=== PATIENT | female | born 1990 | race Caucasian/White ===

== ENCOUNTER 2023-09-29 08:54 | Outpatient (CLI) | payer BC, SELFPAY ==
[2023-09-29 09:56] LABS: HCG,Quantitative 10558 mIU/ml (0-5.42)
[2023-09-30 08:40] LABS: Progesterone 23.2 ng/mL (.)
== END 2023-09-29 23:59 ==
LOC: LAB 08:58
PROVIDERS: PCP Nurse Practitioner Family; Visit Provider Obstetrics & Gynecology
DX: N92.6 Irregular menstruation, unspecified (principal)
CPT/HCPCS: 36415; 84144; 84702

== ENCOUNTER 2023-10-21 11:21 | Outpatient (CLI) | payer BC, SELFPAY ==
[2023-10-21 12:13] LABS: Basophils # 0.1 K/mm3 (0-0.2); Basophils % 0.6 % (0.1-2.0); Eosinophils # 0.3 K/mm3 (0.0-0.4); Eosinophils % 2.9 % (0.1-12.0); Hematocrit 40.8 % (37.0-47.0); Hemoglobin 13.1 g/dL (12.2-16.2); Lymphocytes % 19.1 % (10-50); Mean Corpuscular HGB Conc 32.1 g/dL (31.8-35.4); Mean Corpuscular Hemoglobin 31.5 pg (27.0-31.2); Mean Corpuscular Volume 97.8 fl (81-99); Mean Platelet Volume 7.4 fl (7.4-10.4); Monocytes # 0.5 K/mm3 (0.1-1.0); Monocytes % 5.1 % (1.7-9.3); Neutrophils # 7.5 K/mm3 (1.8-7.8); Neutrophils % 72.3 % (37.0-80.0); Platelet Count 339 K/mm3 (142-424); Red Blood Count 4.17 M/mm3 (4.20-5.40); White Blood Count 10.4 K/mm3 (4.8-10.8)
[2023-10-22 09:09] LABS: Rubella Antibodies, IgG 1.36 index (Immune >0.99)
[2023-10-22 13:53] LABS: Rapid Plasma Reagin Ab Titer Non Reactive titer (NonRea<1:1)
[2023-10-27 09:20] LABS: HIV Screen 4th Generation wRfx Non Reactive
[2023-10-27 09:21] LABS: Hepatitis B Surface Antigen Negative; Hepatitis C Antibody Non Reactive
== END 2023-10-21 23:59 | disposition home or self-care (01) ==
LOC: LAB 11:22
PROVIDERS: PCP Nurse Practitioner Family; Visit Provider Obstetrics & Gynecology
DX: O26.891 Other specified pregnancy related conditions, first trimester (principal); R11.2 Nausea with vomiting, unspecified; Z3A.09 9 weeks gestation of pregnancy
CPT/HCPCS: 36415; 85025; 86593; 86703; 86762; 86850; 87086; 87340; 87380; G0432

== ENCOUNTER 2024-01-07 14:23 | Outpatient (CLI) | payer BC, SELFPAY ==
--- NOTE | 2024-01-07 14:24 | US_ITS ---
PROCEDURE: US OB /MATERNAL DETAIL CLINICAL INDICATION: 20 wk + Anatoomy Scan-Complete COMPARISON: No exams were available for comparison FINDINGS: Transabdominal sonographic images of the pelvis were obtained. From her established due date she is 19 weeks 6 days. Single viable intrauterine gestation. Breech position. Placenta: Posteriorplacenta grade 1. There is an average amount of fluid. MVP 5.28 cm. The cervix appears satisfactory. Closed and measuring 2.84 cm in length. Complete survey performed and was unremarkable on the submitted images as in PACS. No discrete anomalies identified on survey imaging by technologist. Active fetus. Three-vessel cord with satisfactory umbilical cord insertion. 4- chamber heart noted. Situs, aortic arch, the rest examination was not seen well secondary to position. Survey of brain & ventricles Unremarkable. Cerebellum, thalamus, choroid plexus, cisterna magna appear normal. Face and neck survey unremarkable. Profile, nasion, lips and nose appeared normal. Diaphragm and chest views unremarkable. Abdomen: Both kidneys noted and unremarkable. Stomach and bladder noted and satisfactory. Spine: Survey of the spine was not imaged due to position. Both arms and legs noted. Amniotic Fluid: Adequate. Measurements: Average ultrasound age 20weeks 4days. Estimated due date by ultrasound age 1105/22/2024. Estimated weight 377g BPD = 20weeks 1day HC = 20weeks 0 days AC = 21weeks 2days FL = 20weeks 5days Growth Percentile= 91 Heart Rate = 136bpm Cerebellum = 19weeks Humerus = 21weeks HC/AC is 1.08 FL/BPD is 0.72 FL/AC is 0.21 IMPRESSION: 1. Viable fetus in the breech presentation with a posterior placenta grade 1. 2. The fluid is within normal limits with an MVP of 5.28 cm. 3. Anatomical scan appears normal although the spine and cardiac scans were incomplete due to position. Suggest repeat scan in 2-4 weeks. 4. biometry is consistent with the dates. Dictated by: Carson Walker MD 01/07/2024 17:24 Carson Walker MD in [place] 01/07/2024 17:24
== END 2024-01-07 23:59 | disposition home or self-care (01) ==
LOC: RAD 14:24
PROVIDERS: PCP Nurse Practitioner Family; Visit Provider Obstetrics & Gynecology
DX: Z36.2 Encounter for other antenatal screening follow-up (principal); O99.512 Diseases of the respiratory system complicating pregnancy, second trimester; J45.909 Unspecified asthma, uncomplicated; E66.9 Obesity, unspecified; Z3A.19 19 weeks gestation of pregnancy
CPT/HCPCS: 76811

== ENCOUNTER 2024-01-21 12:44 | Outpatient (CLI) | payer BC, SELFPAY ==
--- NOTE | 2024-01-21 12:44 | US_ITS ---
PROCEDURE: US OB FOLLOW UP CLINICAL INDICATION: follow up views of spine and cardiac in 2-4 COMPARISON: US US OB /MATERNAL DETAIL from 01/07/2024 FINDINGS: Transabdominal sonographic images of the pelvis were obtained. The following parameters are obtained: From her established due date she is 21weeks 6days Viable fetus in the cephalic presentation with a posterior placenta grade 1. The posterior placenta is low lying when seen transvaginally and measures 2.3 cm from the internal cervical os. The cervix measures 4.13 cm measured transvaginally. heart rate: 139bpm bpm. Amniotic fluid: Appears normal No obvious anomalies evident. heart: Four-chamber heart: LVOT, RVOT, three-vessel view are seen and appear normal. spine: Cervical, thoracic and lower spine appear normal. Nose and lips, stomach, bladder, kidneys, three-vessel cord appear normal. IMPRESSION: 1. Viable fetus in the cephalic presentation with a posterior placenta grade 1. 2. The placenta is somewhat low lying measuring 2.3 cm from the internal cervical os. Suggest repeat scan at 28 weeks. 3. The fluid is within normal limits. 4. Anatomy of the heart and spine today appear normal. 5. The rest of the limited anatomical scan also appears normal. Dictated by: Carson Walker MD 01/22/2024 08:33 Carson Walker MD in [place] 01/22/2024 08:37
== END 2024-01-21 23:59 | disposition home or self-care (01) ==
LOC: RAD 12:44
PROVIDERS: PCP Nurse Practitioner Family; Visit Provider Obstetrics & Gynecology
DX: O28.3 Abnormal ultrasonic finding on antenatal screening of mother (principal); Z3A.21 21 weeks gestation of pregnancy; Z36.2 Encounter for other antenatal screening follow-up
CPT/HCPCS: 76816

== ENCOUNTER 2024-02-18 10:58 | Outpatient (CLI) | payer BC, SELFPAY ==
[2024-02-18 11:37] LABS: Basophils % 0.3 % (0.1-2.0); Eosinophils # 0.3 K/mm3 (0.0-0.4); Eosinophils % 3.1 % (0.1-12.0); Hematocrit 36.7 % (37.0-47.0); Lymphocytes # 1.6 K/mm3 (0.7-4.5); Lymphocytes % 18.2 % (10-50); Mean Corpuscular HGB Conc 32.5 g/dL (31.8-35.4); Mean Corpuscular Hemoglobin 31.8 pg (27.0-31.2); Mean Corpuscular Volume 97.7 fl (81-99); Mean Platelet Volume 8.4 fl (7.4-10.4); Monocytes # 0.4 K/mm3 (0.1-1.0); Monocytes % 4.7 % (1.7-9.3); Neutrophils # 6.5 K/mm3 (1.8-7.8); Neutrophils % 73.7 % (37.0-80.0); Platelet Count 249 K/mm3 (142-424); Red Blood Count 3.76 M/mm3 (4.20-5.40); Red Cell Distribution Width 13.9 % (11.5-17.5); White Blood Count 8.9 K/mm3 (4.8-10.8)
[2024-02-18 12:06] LABS: Albumin Level 3.5 g/dl (3.5-5.0); Chloride 110 mmol/L (98-107); Sodium 134 mmol/L (136-145)
[2024-02-18 12:09] LABS: Alanine Aminotransferase 15 U/L (12-78); Aspartate Amino Transferase 19 U/L (14-36); Blood Urea Nitrogen 6 mg/dl (7-17); Carbon Dioxide 20 mmol/L (22.0-30.0); Estimated Glomerular Filt Rate 185 ml/min (>60); GFR (African American) 224 ML/MIN (>60)
[2024-02-18 12:10] LABS: Albumin/Globulin Ratio 1.2 (1.1-1.8); Alkaline Phosphatase 73 U/L (38-126); Bilirubin,Total 0.4 mg/dl (0.2-1.3); Calcium 8.5 mg/dl (8.4-10.2); Globulin 2.9 g/dL (1.3-3.2); Glucose 121 mg/dl (74-100); Total Protein,Serum 6.4 g/dl (6.3-8.2)
[2024-02-18 12:22] LABS: Glucose,Fasting 115 mg/dl (74-100)
[2024-02-18 12:28] LABS: Free Thyroxine Index 2.4 ug/dL (5.93-13.13); T4 (Thyroxine) 10.5 ug/dl (5.53-11.0); Triiodothryronine (T3) Uptake 23 % (23.5-40.5)
[2024-02-18 12:58] LABS: Glucose 1 Hour 136 mg/dL (74-100)
[2024-02-18 16:08] LABS: Vitamin B12 253 pg/mL (239-931)
[2024-02-19 11:28] LABS: Rapid Plasma Reagin Ab Titer Non Reactive titer (NonRea<1:1)
== END 2024-02-18 23:59 | disposition home or self-care (01) ==
LOC: LAB 10:59
PROVIDERS: Obstetrics & Gynecology; PCP Nurse Practitioner Family; Visit Provider Specialist
DX: Z34.90 Encounter for supervision of normal pregnancy, unspecified, unspecified trimester (principal); E06.3 Autoimmune thyroiditis; R41.0 Disorientation, unspecified
CPT/HCPCS: 36415; 80050; 80053; 82607; 82746; 82951; 84436; 84443; 84479; 85025; 86593

== ENCOUNTER 2024-02-19 13:16 | Outpatient (CLI) | payer BC, SELFPAY ==
--- NOTE | 2024-02-19 13:22 | US_ITS ---
FINAL REPORT CLINICAL HISTORY: memory loss, hashimotos FINDINGS: Sonographic images of the thyroid gland were obtained. The right thyroid lobe measures 54 mm. in length. The left thyroid lobe measures 47 mm. in length. The thyroid isthmus measures 2 mm. The echogenicity is normal. No mass or nodule is identified. IMPRESSION: Unremarkable thyroid ultrasound. Reviewed, Interpreted and Dictated by Jd Samuel III, MD Transcribed by Raya Chin Authenticated and . [facility]
== END 2024-02-19 23:59 | disposition home or self-care (01) ==
LOC: RAD 13:16
PROVIDERS: PCP Nurse Practitioner Family; Visit Provider Specialist
DX: E06.3 Autoimmune thyroiditis (principal); R41.3 Other amnesia
CPT/HCPCS: 76536

== ENCOUNTER 2024-02-29 11:11 | Outpatient (CLI) | payer BC, SELFPAY ==
--- NOTE | 2024-02-29 11:12 | MR_ITS ---
FINAL REPORT CLINICAL HISTORY: confuson/memory loss FINDINGS: Multi planar MR imaging was obtained through the brain without contrast. The midline structures appear intact. There is no evidence of Chiari malformation. On T2 and flair axial images the brain parenchyma is homogeneous. On diffusion-weighted images there is no evidence of restricted diffusion. The visualized paranasal sinuses demonstrate normal signal voids. The seventh and eighth nerve root complexes are intact. IMPRESSION: Essentially unremarkable nonenhanced brain MRI. Reviewed, Interpreted and Dictated by Bob Bush MD Transcribed by Naomy Cloud Authenticated and [facility]
== END 2024-02-29 23:59 | disposition home or self-care (01) ==
LOC: RAD 11:12
PROVIDERS: PCP Nurse Practitioner Family; Visit Provider Specialist
DX: R41.3 Other amnesia (principal); R41.0 Disorientation, unspecified; R20.0 Anesthesia of skin; R20.2 Paresthesia of skin
CPT/HCPCS: 70551

== ENCOUNTER 2024-03-04 12:47 | Outpatient (CLI) | payer BC, SELFPAY ==
--- NOTE | 2024-03-04 13:26 | US_ITS ---
PROCEDURE: US OB FOLLOW UP CLINICAL INDICATION: repeat scan at 28 weeks to evaluate the placenta COMPARISON: US US OB /MATERNAL DETAIL from 01/07/2024 US US OB FOLLOW UP from 01/21/2024 FINDINGS: Transabdominal sonographic images of the pelvis were obtained. The following parameters are obtained: From her established due date she is 28weeks 0 days Viable fetus in the cephalic presentation with a posterior placenta grade 1. Transvaginally the posterior placenta is 2.2 cm from the internal cervical os. Still low lying. The cervix measures 3.16 cm transvaginally heart rate: 143bpm bpm. weight 1219 grams, 2 lb 11 oz. BPD: 29weeks 1day, 73 percentile HC: 28weeks 6days, 41 percentile AC: 28weeks 3days, 54 percentile FL: 28weeks 2days, 39 percentile HC/AC: 1.1 FL/BPD: 0.73 FL/AC: 0.22 Growth percentile: 52 Amniotic fluid index: 17.4cm, MVP 6.60 cm. No obvious anomalies evident. profile seen, stomach, bladder, kidneys, three-vessel cord, four chamber heart appear normal. IMPRESSION: 1. Viable fetus in the cephalic presentation with a posterior placenta grade 1. 2. The placenta is still low lying and measures 2.2 cm from the internal cervical os. Suggest repeat scan at 36 weeks. 3. The fluid is within normal limits with an amniotic fluid index of 17.4 cm, MVP 6.6 cm. 4. There has been good interval growth with the fetus currently 52nd percentile. 5. Limited anatomical scan appears normal. Dictated by: Carson Walker MD 03/05/2024 07:52 Carson Walker MD in [place] 03/05/2024 07:52
== END 2024-03-04 23:59 | disposition home or self-care (01) ==
LOC: RAD 12:48
PROVIDERS: PCP Nurse Practitioner Family; Visit Provider Obstetrics & Gynecology
DX: Z36.2 Encounter for other antenatal screening follow-up (principal); Z3A.28 28 weeks gestation of pregnancy
CPT/HCPCS: 76816

== ENCOUNTER 2024-03-17 00:18 | Emergency (ER) | payer BC, SELFPAY ==
--- NOTE | 2024-03-17 00:16 | ECG_ITS ---
APPROVED REPORT Exam: Resting ECG HR:73 bpm ECG Measurements Heart Rate 73 AXES WY 208 P 16 QRSd 90 QRS 24 QT 393 T 44 QTc 419 Conclusion SINUS RHYTHM NORMAL ECG UNCONFIRMED REPORT Electronically signed by : CARISSA FERNANDEZ, 03/17/2024 07:07:31
[2024-03-17 00:19] VITALS: BP 128/72; PULSE 65; RESP 19; TEMP 36.7; O2SAT 99; BMI 35.6
--- NOTE | 2024-03-17 00:28 | ED_ITS ---
Discharge Plan Disposition Patient Disposition: Home, Self-Care Prescriptions Prescriptions: No Action DHA 200 mg capsule PO escitalopram oxalate 20 mg tablet 20 mg PO DAILY albuterol sulfate 2.5 mg /3 mL (0.083 %) solution for nebulization 2.5 mg inhalation PRN Patient Comments: USE 1 VIAL IN NEBULIZER EVERY 6 HOURS NEEDED cetirizine 10 mg tablet 10 mg PO DAILY Patient Comments: TAKE 1 TABLET BY MOUTH 1 TIME EACH DAY omeprazole 40 mg capsule,delayed release(DR/EC) 40 mg PO DAILY montelukast 10 mg tablet 10 mg PO DAILY Patient Comments: TAKE 1 TABLET BY MOUTH AT BEDTIME albuterol sulfate 90 mcg/actuation HFA aerosol inhaler 2 puff inhalation PRN Patient Comments: INHALE 2 PUFFS BY MOUTH EVERY 6 HOURS NEEDED bupropion HCl 150 mg tablet extended release 24 hr 150 mg PO DAILY Qty: 30 3RF Referrals Follow up/Referrals: Provider,Referral, MD [Primary Care Provider] - See instructions Activity Restrictions/Add. Instructions Additional Instructions/Restrictions: Take Tums or other viim-lbm-[id number] reflux meds as needed. Please follow-up with your primary care provider. Please return to the emergency department if you develop any new or worsening symptoms or become concerned for your health. Clinical Impressions Clinical Impression: Chest pain Print Language Print Language: Swiss Discharge ED Provider: Brett Cantor Adult HPI General Chief complaint: Chest Pain Stated complaint: chest pain Time Seen by Provider: 03/17/24 00:20 Mode of Arrival: Family Vehicle Source of Information: Patient Limitations: No Limitations Description of Symptoms (Recalled from ER Triage Doc. by RN): 33 yo female presents with cc of chest pain; vss. states she had 2 separate episodes earlier this date, the last one lasting the longest. slightly dyspneic. slight nausea History of Present Illness HPI narrative: 33-year-old female without significant past medical history, currently 30 weeks with her third , no complications in the so far, presents for central chest pain. She reports that it happened earlier this afternoon lasting for maybe 15 minutes. It happened again starting around 7, and has been present at a low level since that time. She reports that she does have a history of eosinophilic esophagitis but usually does not have any reflux. She reports that she has had a gallbladder attack in the past and that it does not feel at all like that. Denies any significant abdominal pain. Denies history of PE, denies any recent surgery or immobilization. Related Data Home Medications ?Medication ?Instructions ?Recorded ?Confirmed albuterol sulfate 2.5 mg/3 mL 2.5 mg inhalation PRN 10/21/23 03/11/24 (0.083 %) solution for nebulization albuterol sulfate 90 mcg/actuation 2 puff inhalation PRN 10/21/23 03/11/24 aerosol inhaler cetirizine 10 mg tablet 10 mg PO DAILY 10/21/23 03/11/24 escitalopram oxalate 20 mg tablet 20 mg PO DAILY 10/21/23 03/11/24 montelukast 10 mg tablet 10 mg PO DAILY 10/21/23 03/11/24 omeprazole 40 mg capsule,delayed 40 mg PO DAILY 10/21/23 03/11/24 release docosahexaenoic acid 200 mg mg PO 02/15/24 03/11/24 capsule ( DHA) Previous Rx's ?Medication ?Instructions ?Recorded bupropion HCl 150 mg 24 hr tablet, 150 mg PO DAILY #30 tabs 02/12/24 extended release Allergies Allergy/AdvReac Type Severity Reaction Status Date / Time No Known Allergies Allergy Verified 03/11/24 11:17 [facility] Disclaimer: The information contained in this section may have been updated after the patient was seen, as this information can be updated by other users. Medical History Asthma Anxiety and depression Surgical History H/O endoscopy Hx of colonoscopy Hx of wisdom tooth extraction Family History Grandmother Cancer uterine Hypertension Thyroid disorder Other Coronary artery disease FHx: mental illness Social History Smoking Status: Unknown if ever smoked alcohol intake: never substance use type: denies use current occupational status: other details: [employer] Travel in the last 8 weeks: None ROS Obtained: Yes All systems reviewed & no additional complaints except as documented Physical Exam General General appearance: alert and in no apparent distress Head Head exam: atraumatic and normocephalic Eye Eye exam: Present normal appearance, PERRL and EOMI ENT ENT exam: Present normal oropharynx and normal external ear exam Neck Neck exam: Present normal inspection and full ROM Chest Chest inspection: Present normal inspection and symmetric chest wall rise; Absent tenderness Respiratory Respiratory exam: Present normal lung sounds bilaterally; Absent respiratory distress Cardiovascular Cardiovascular exam: Present regular rate and normal rhythm Abdominal Exam Abdominal exam: Present soft and distention (Gravid); Absent tenderness or guarding Extremities Exam Extremities exam: Present normal inspection; Absent edema or joint swelling Back Exam Back exam: Present normal inspection; Absent tenderness Neurological Exam Neurological exam: Present alert and oriented X3; Absent motor sensory deficit Psychiatric Psychiatric exam: Present normal affect and normal mood Skin Skin exam: Present warm, dry and normal color Lymphatic Lymphatic Findings: no adenopathy Medical Decision Making Medical Records Medical records reviewed: Yes I reviewed the patient's medical records. Toney Inquiry Pt receiving controlled substance: No Toney was queried for this patient: No Vital Signs: 03/17/24 00:19 Temperature 98.1 F Temperature Source Oral Pulse Rate [Right Brachial] 65 Respiratory Rate 19 Blood Pressure [Right Arm] 128/72 Blood Pressure Mean [Right Arm] 90 Blood Pressure Source [Right Arm] Automatic Cuff Blood Pressure Position [Right Arm] Sitting 02 Sat by Pulse Oximetry 99 Oxygen Delivery Method Room Air Lab Data Lab results reviewed: Yes I reviewed the patient's lab results. Lab Results 03/17/24 00:25: WBC 8.9, RBC 4.00 L, Hgb 12.4, Hct 40.1, MCV 100.3 H, MCH 31.1, MCHC 31.0 L, RDW 13.9, Plt Count 261, MPV 8.1, Neut % (Auto) 64.4, Lymph % (Auto) 23.6, Canadian % (Auto) 6.9, Eos % (Auto) 4.3, Baso % (Auto) 0.7, Neut # (Auto) 5.7, Lymph # (Auto) 2.1, Canadian # (Auto) 0.6, Eos # (Auto) 0.4, Baso # (Auto) 0.1, Sodium 135 L, Potassium 4.1, Chloride 109 H, Carbon Dioxide 23, Anion Gap 7.1, BUN 10, Creatinine 0.50 L, Estimated Creat Clear 256, Estimated GFR 143, Est GFR ( Amer) 173, Glucose 78, Calcium 9.1, Total Bilirubin 0.4, AST 23, ALT 15, Alkaline Phosphatase 82, Total Protein 7.2, Albumin 3.8, G lobulin 3.4 H, Albumin/Globulin Ratio 1.1, Lipase 103 03/17/24 00:25 03/17/24 00:25 Orders (Tests/Meds): ED MEDICATIONS Discontinued Medications Generic Name Dose Route Start Last Admin Trade Name Frejacqueline PRN Reason Stop Dose Admin Lidocaine HCl 15 ml 03/17/24 00:28 03/17/24 00:35 Lidocaine 2% Viscous Katelynn 15ml Udc PO 03/17/24 00:29 15 ml ONCE ONE Administration ORDERS Category Date Time Status CBC w/Auto Diff [Complete Blood Count Auto Diff] Stat Lab 03/17/24 00:25 Completed CMP [Comprehensive Metabolic Panel] Stat Lab 03/17/24 00:25 Completed Lipase Stat Lab 03/17/24 00:25 Completed ECG Data Tracing #1: I reviewed this ECG and interpreted as documented below: Sinus rhythm, rate of 73, no evidence of arrhythmia, no ST changes ECG initial impression date: 03/17/24 ECG initial impression time: 00:18 Medical Decision Narrative: 33-year-old female G3, P2 at 30 weeks presents for central chest pain for the last few hours.. History was obtained via interactive discussion with patient. On arrival, patient is [afebrile, hemodynamically stable, satting appropriately, alert, oriented x4, GCS 15], moving all extremities spontaneously. Full physical exam performed and significant for no significant physical exam abnormalities, specifically no abdominal tenderness, clear lungs bilaterally. Differential includes but is not limited to GERD, musculoskeletal chest pain, PE, carditis, pleurisy. Patient was given viscous lidocaine for symptomatic management and correction of underlying abnormalities. Workup initiated including CBC CMP lipase. Patient is PERC negative and does not require D-dimer. I considered the utility of a chest x-ray, but given clear lungs, lack of respiratory symptoms, active , it was felt that the risks of radiograph outweighed the benefit.. On re-evaluation, patient [remains afebrile, HD stable.] Patient reports symptomatic improvement after viscous lidocaine Laboratory workup independently interpreted by me and significant for normal renal function, normal white count, normal lipase. Given patient history, exam and workup, patient's presentation most likely represents reflux. These findings were communicated with patient. She is given instructions regarding symptomatic care and discharged in stable condition with return precautions.. Procedures Risk/Benefits of Procedure(s) Were Explained: Yes Critical Care Critical Care Time Critical Care Time: No
[2024-03-17] MEDS: LIDOCAINE 2% VISCOUS SOL 15ML UDC 15 ML PO (00:35)
[2024-03-17 00:36] LABS: Albumin Level 3.8 g/dl (3.5-5.0); Chloride 109 mmol/L (98-107); Potassium 4.1 mmoL/L (3.5-5.1); Sodium 135 mmol/L (136-145)
[2024-03-17 00:39] LABS: Alanine Aminotransferase 15 U/L (12-78); Albumin/Globulin Ratio 1.1 (1.1-1.8); Alkaline Phosphatase 82 U/L (38-126); Anion Gap 7.1 mEq/L (5-15); Aspartate Amino Transferase 23 U/L (14-36); Bilirubin,Total 0.4 mg/dl (0.2-1.3); Blood Urea Nitrogen 10 mg/dl (7-17); Calcium 9.1 mg/dl (8.4-10.2); Carbon Dioxide 23 mmol/L (22.0-30.0); Creatinine Clearance Estimated 256 mL/min (50-200); Estimated Glomerular Filt Rate 143 ml/min (>60); GFR (African American) 173 ML/MIN (>60); Globulin 3.4 g/dL (1.3-3.2); Glucose 78 mg/dl (74-100); Total Protein,Serum 7.2 g/dl (6.3-8.2)
[2024-03-17 00:46] LABS: Basophils # 0.1 K/mm3 (0-0.2); Basophils % 0.7 % (0.1-2.0); Eosinophils # 0.4 K/mm3 (0.0-0.4); Eosinophils % 4.3 % (0.1-12.0); Hematocrit 40.1 % (37.0-47.0); Hemoglobin 12.4 g/dL (12.2-16.2); Lymphocytes # 2.1 K/mm3 (0.7-4.5); Lymphocytes % 23.6 % (10-50); Mean Corpuscular Hemoglobin 31.1 pg (27.0-31.2); Mean Corpuscular Volume 100.3 fl (81-99); Mean Platelet Volume 8.1 fl (7.4-10.4); Monocytes # 0.6 K/mm3 (0.1-1.0); Monocytes % 6.9 % (1.7-9.3); Neutrophils # 5.7 K/mm3 (1.8-7.8); Neutrophils % 64.4 % (37.0-80.0); Platelet Count 261 K/mm3 (142-424); Red Cell Distribution Width 13.9 % (11.5-17.5); White Blood Count 8.9 K/mm3 (4.8-10.8)
[2024-03-17 00:48] LABS: Lipase 103 U/L (23-300)
[2024-03-17 01:07] VITALS: BP 135/80; PULSE 77; RESP 16; TEMP 36.7; O2SAT 98
== END 2024-03-17 01:08 | disposition home or self-care (01) ==
PROVIDERS: Emergency Provider Emergency Medicine
DX: O26.893 Other specified pregnancy related conditions, third trimester (principal); R07.9 Chest pain, unspecified; R06.00 Dyspnea, unspecified; R11.0 Nausea; Z3A.30 30 weeks gestation of pregnancy
CPT/HCPCS: 80053; 83690; 85025; 93005; 99285

== ENCOUNTER 2024-03-28 13:29 | Outpatient (CLI) | payer BC, SELFPAY ==
[2024-03-28 13:31] VITALS: BMI 35.9
[2024-03-28 13:57] LABS: Microscopic, Urine URINE MICROSCOPIC (MICROSCOPIC)
[2024-03-28 14:05] VITALS: BP 111/65; PULSE 76; RESP 17; TEMP 36.6; O2SAT 98; BMI 35.8
[2024-03-28 14:10] LABS: Fetal Membrane Rupture (Rapid) Negative (Negative)
[2024-03-28 14:17] LABS: Appearance,Urine CLEAR (Clear); Bilirubin,Urine Negative (Negative); Blood, Urine Negative (Negative); Color,Urine ORANGE (Yellow); Glucose,Urine (UA) Negative (Negative); Ketones,Urine TRACE (Negative); Leukocyte Esterase,Urine Negative (Negative); Nitrate,Urine Negative (Negative); Protein,Urine Negative (Negative); Specific Gravity, Urine >= 1.030 (1.005-1.030); Urobilinogen,Urine 0.2 EU/dl (0.2)
[2024-03-28 14:30] LABS: Bacteria,Urine 1+ /lpf; RBC,Urine Occasional #/hpf (0-3)
[2024-03-28 14:32] LABS: Barbiturates Screen,Urine Negative ng/ml (<200)
[2024-03-28 14:33] LABS: Amphetamine/Metha Screen,Urine Negative ng/ml (<1000); Benzodiazepines Screen,Urine Negative ng/ml (<200)
[2024-03-28 14:34] LABS: Methadone Screen,Urine Negative ng/ml (<300)
[2024-03-28 14:35] LABS: Cannabinoid Screen,Urine Negative ng/ml (<50); Cocaine Screen,Urine Negative ng/ml (<300)
[2024-03-28 14:36] LABS: Opiate Screen,Urine Negative ng/ml (<300)
[2024-03-28 14:37] LABS: Phencyclidine Screen,Urine Negative ng/ml (<25)
== END 2024-03-28 14:44 | disposition home or self-care (01) ==
LOC: OBOUT 13:29 → OB 13:31
PROVIDERS: PCP Nurse Practitioner Family; Visit Provider Obstetrics & Gynecology
DX: O42.913 Preterm premature rupture of membranes, unspecified as to length of time between rupture and onset of labor, third trimester (principal); O36.8130 Decreased fetal movements, third trimester, not applicable or unspecified; Z3A.31 31 weeks gestation of pregnancy
CPT/HCPCS: 80307; 81001; 84112; G0463

== ENCOUNTER 2024-04-25 13:36 | Outpatient (CLI) | payer BC, SELFPAY ==
[2024-04-25 13:47] VITALS: BMI 36.3
[2024-04-25 14:05] VITALS: PULSE 72; RESP 15; TEMP 36.6; O2SAT 97; BMI 36.3
== END 2024-04-25 14:30 | disposition home or self-care (01) ==
LOC: OBOUT 13:38 → OB 13:40
PROVIDERS: PCP Nurse Practitioner Family; Visit Provider Obstetrics & Gynecology
DX: O60.03 Preterm labor without delivery, third trimester (principal); Z3A.35 35 weeks gestation of pregnancy; M25.572 Pain in left ankle and joints of left foot; W01.0XXA Fall on same level from slipping, tripping and stumbling without subsequent striking against object, initial encounter
CPT/HCPCS: G0463

== ENCOUNTER 2024-04-25 14:33 | Emergency (ER) | payer BC, SELFPAY ==
--- NOTE | 2024-04-25 14:37 | XR_ITS ---
FINAL REPORT CLINICAL HISTORY: fall COMPARISON: None FINDINGS: LEFT KNEE 3 views of the left knee were obtained. There is no acute fracture or dislocation. Visualized joint spaces are normally aligned. Soft tissues are unremarkable. IMPRESSION: No acute bony abnormality. Reviewed, Interpreted and Dictated by Bob Bush MD Transcribed by Hallie Valdivia Authenticated and [facility]
[2024-04-25 14:50] VITALS: BP 121/80; PULSE 78; RESP 20; TEMP 36.4; O2SAT 97; BMI 36.5
--- NOTE | 2024-04-25 14:58 | EXP.UTC ---
Discharge Plan Disposition Patient Disposition: Home, Self-Care Condition: Good Prescriptions Prescriptions: No Action escitalopram oxalate 20 mg tablet 20 mg PO DAILY albuterol sulfate 90 mcg/actuation HFA aerosol inhaler 2 puff inhalation Q6HP PRN (Reason: Asthma) Patient Comments: INHALE 2 PUFFS BY MOUTH EVERY 6 HOURS NEEDED bupropion HCl 150 mg tablet extended release 24 hr 150 mg PO DAILY Qty: 30 3RF Referrals Follow up/Referrals: Enzo Rico DO [Staff Physician] - See instructions Reyna Garibay [Primary Care Provider] - See instructions Activity Restrictions/Add. Instructions Additional Instructions/Restrictions: Rest the extremity, apply ice for 15 minutes as tolerated three or four times per day, Wear the gary wrap for compression, Elevate the extremity as tolerated while you are resting. Take tylenol for pain. Follow up with Dr. Rioc (orthopedics). I put in a referral but you need to call his office and schedule an appointment. Follow up with your regular doctor. GO TO THE ER FOR ANY WORSENING SYMPTOMS Clinical Impressions Clinical Impression: Left knee sprain, Left knee pain, Instructions Patient Instructions: DI for Knee Sprain, How to Use a Knee Immobilizer, How to Apply an Elastic Wrap on Knee Print Language Print Language: Algerian Discharge ED Provider: Danny Park [facility] [place] HPI General Stated complaint: AO-fall 1225- Pain in L knee Mode of Arrival: Ambulatory Source of Information: Patient Limitations: No Limitations Time Seen by Provider: 04/25/24 14:58 Description of Symptoms (Recalled from Triage Doc. by RN): PATIENT STATES SHE TWISTED HER LEFT KNEE AND FELL TODAY. PATIENT C/O PAIN TO LEFT KNEE. PATIENT IS 35 WEEKS AND STATES SHE HAS BEEN TO OB TO HAVE BABY CHECKED BEFORE COMING [facility] HEENT Symptoms (Recalled from RN notes): No Resp Symptoms (Recalled from RN notes): No Skin Symptoms (Recalled from RN notes): No MS Symptoms (Recalled from RN notes): Yes Functional Status (Recalled from RN notes): WNL History of Present Illness Provider Complaint: She states that she fell earlier today and came down on her left knee. She has had left knee pain and swelling since then. She denies any other injury. She is 35 weeks . 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 She states that she was told the baby was fine. Related Data Home Medications ?Medication ?Instructions ?Recorded ?Confirmed albuterol sulfate 90 mcg/actuation 2 puff inhalation Q6HP PRN Asthma 10/21/23 04/25/24 aerosol inhaler escitalopram oxalate 20 mg tablet 20 mg PO DAILY 10/21/23 04/25/24 Previous Rx's ?Medication ?Instructions ?Recorded bupropion HCl 150 mg 24 hr tablet, 150 mg PO DAILY #30 tabs 02/12/24 extended release Allergies Allergy/AdvReac Type Severity Reaction Status Date / Time No Known Allergies Allergy Verified 04/19/24 11:15 Worker's Comp Is this a Worker's Comp case?: No [facility] Disclaimer: The information contained in this section may have been updated after the patient was seen, as this information can be updated by other users. Medical History Varicose veins during , antepartum Maternal obesity affecting , antepartum Asthma Anxiety and depression Surgical History H/O endoscopy Hx of colonoscopy Hx of wisdom tooth extraction Family History Grandmother Cancer uterine Hypertension Thyroid disorder Other Coronary artery disease FHx: mental illness Social History Smoking Status: Unknown if ever smoked alcohol intake: never substance use type: denies use current occupational status: unemployed Travel in the last 8 weeks: None ROS Obtained: Yes All systems reviewed & no additional complaints except as documented Constitutional Constitutional: Denies chills and Denies fever(s) Eyes Eyes: Denies eye discharge ENT Ears, Nose, Mouth, and Throat: Denies dizziness, Denies otalgia and Denies sore throat Cardiovascular Cardiovascular: Denies chest pain Respiratory Respiratory: Denies shortness of breath, Denies chest congestion, Denies cough, Denies stridor and Denies wheezing Gastrointestinal Gastrointestingal: Denies nausea or vomiting Musculoskeletal Musculoskeletal: Reports as per HPI Integumentary/Breasts Skin/Breast: Denies redness, Denies rash and Denies wounds Neurologic Neurologic: Denies dizziness and Denies paresthesias Allergic/Immunologic Allergic/Immunologic: Denies wheezing Physical Exam General General appearance: alert and in no apparent distress Head Head exam: atraumatic, normocephalic and normal inspection Eye Eye exam: Present normal appearance, PERRL and EOMI ENT ENT exam: Present normal exam, normal oropharynx, mucous membranes moist, TM's normal bilaterally and normal external ear exam Neck Neck exam: Present normal inspection, full ROM and trachea midline; Absent meningismus or lymphadenopathy Chest Chest inspection: Present normal inspection and symmetric chest wall rise; Absent tenderness Respiratory Respiratory exam: Present normal lung sounds bilaterally; Absent respiratory distress Cardiovascular Cardiovascular exam: Present regular rate and normal rhythm; Absent JVD Abdominal Exam Abdominal exam: Present soft and normal bowel sounds; Absent distention, tenderness or guarding Extremities Exam Extremities exam: Present normal capillary refill; Absent calf tenderness Expanded Lower Extremity Exam Left: Upper leg exam: Present normal inspection and full ROM; Absent tenderness, swelling, abrasion, laceration, ecchymosis, deformity, crepitus, dislocation or erythema Knee exam: Present tenderness, swelling, ecchymosis and knee extension intact; Absent full ROM, abrasion, laceration, deformity, crepitus, dislocation, erythema, effusion, anterior drawer sign, posterior draw sign, pain with valgus, laxity with valgus, pain with varus or laxity with varus Lower leg exam: Present normal inspection, full ROM and Achilles tendon intact; Absent tenderness, swelling, abrasion, laceration, ecchymosis, deformity, crepitus, dislocation, erythema, palpable cord or Homans' sign Neurovascular/Tendon exam: Present normal capillary refill and normal 2-point discrimination; Absent pulse deficit, motor deficit, sensory deficit, tendon deficit or extremity cold to touch Gait: observed and limited by pain Back Exam Back exam: Present normal inspection; Absent tenderness Neurological Exam Neurological exam: Present alert and oriented X3 Psychiatric Psychiatric exam: Present normal affect and normal mood Skin Skin exam: Present warm, dry, intact and normal color Lymphatic Lymphatic Findings: no adenopathy Medical Decision Making Medical Records Medical records reviewed: No I reviewed the patient's medical records. Screening: Per USPSTF and CDC recommendations, given the prevalence of disease in our region, it is our hospital?s policy to screen for HIV and viral Hepatitis for all patients aged 18 and over and those with ongoing risk factors. Toney Inquiry Pt receiving controlled substance: No Vital Signs: 04/25/24 14:50 Temperature 97.5 F L Temperature Source Oral Pulse Rate [Left Brachial] 78 Respiratory Rate 20 Blood Pressure [Left Arm] 121/80 Blood Pressure Mean [Left Arm] 93 Blood Pressure Source [Left Arm] Automatic Cuff Blood Pressure Position [Left Arm] Sitting 02 Sat by Pulse Oximetry 97 Oxygen Delivery Method Room Air Orders (Tests/Meds): ORDERS Category Date Time Status Knee XR left 3 views [XR knee LT 3V] Stat Exams 04/25/24 14:37 Taken Radiology Data #1: Image(s): Knee Image Reviewed: Yes I reviewed the patient's radiology image and Yes I have reviewed radiologist's interpretation Preliminary Findings: No Fracture Seen Accession No. : [id number] Patient Name / ID : Jody Munroe N / [id number] Exam Date : 04/25/2024 14:35:37 ( Final ) Study Comment : Sex / Age : F / 33Y Creator : RANDEE BUSH Dictator : Tennis Player : Food Services Manager : RANDEE BUSH Approver2 : Report Date : 04/25/2024 16:03:18 My Comment : FINAL REPORT CLINICAL HISTORY: fall COMPARISON: None FINDINGS: LEFT KNEE 3 views of the left knee were obtained. There is no acute fracture or dislocation. Visualized joint spaces are normally aligned. Soft tissues are unremarkable. IMPRESSION: No acute bony abnormality. Reviewed, Interpreted and Dictated by Randee Bush MD Transcribed by Hallie Valdivia Authenticated and [facility] Procedures Risk/Benefits of Procedure(s) Were Explained: Yes Orthopedic Splinting/Casting Injury #1: Side: left Lower Extremity Injury Location: knee Lower Extremity Immobilizer: knee immobilizer Post Cast/Splinting Neuro Status: intact and no change Post Cast/Splinting Vasc Status: intact and no change
[2024-04-25 15:24] VITALS: BP 121/80; PULSE 78; RESP 20; TEMP 36.4; O2SAT 97
== END 2024-04-25 15:30 | disposition home or self-care (01) ==
PROVIDERS: Emergency Provider Nurse Practitioner Family; PCP Nurse Practitioner Family
DX: S83.92XA Sprain of unspecified site of left knee, initial encounter (principal); X50.0XXA Overexertion from strenuous movement or load, initial encounter
CPT/HCPCS: 73562; 99213; G0381

== ENCOUNTER 2024-04-27 11:14 | Emergency (ER) | payer BC, SELFPAY ==
[2024-04-27 12:05] VITALS: BP 110/72; PULSE 81; RESP 20; TEMP 36.5; O2SAT 96; BMI 36.4
--- NOTE | 2024-04-27 12:07 | EXP.UTC ---
Discharge Plan Disposition Patient Disposition: Home, Self-Care Condition: Good Prescriptions Prescriptions: No Action escitalopram oxalate 20 mg tablet 20 mg PO DAILY albuterol sulfate 90 mcg/actuation HFA aerosol inhaler 2 puff inhalation Q6HP PRN (Reason: Asthma) Patient Comments: INHALE 2 PUFFS BY MOUTH EVERY 6 HOURS NEEDED bupropion HCl 150 mg tablet extended release 24 hr 150 mg PO DAILY Qty: 30 3RF Referrals Follow up/Referrals: Reyna Garibay [Primary Care Provider] - See instructions Enzo Rico DO [Staff Physician] - See instructions (Call office for appointment) Activity Restrictions/Add. Instructions Additional Instructions/Restrictions: *Use crutches and weight bearing as tolerated *RICE, Rest the extremity, Ice 15-20 minutes 3-4 times daily, Compress- wear the gary wrap as discussed as much as possible to help reduce swelling and pain, Elevate the extremity when at rest *knee immobilizer is for support and help control swelling, use it except in the shower. Be sure that is not to tight but not to loose either *Elevate when resting? Discuss with your OB what is safe to take for pain Immediately follow up with your family doctor for new or worsening of symptoms, or no noticeable improvement over the next 3-5 days Call and make appointment with Orthopedics for further evaluation and treatment Clinical Impressions Clinical Impression: Left knee pain Instructions Patient Instructions: How To Perform RICE (Rest, Ice, Compress, Elevate), How to Use Crutches, Acetaminophen (Alternative Therapy) Print Language Print Language: Kazakh Discharge ED Provider: Yumiko Carmen [facility] [place] General Stated complaint: AO- 04/25/24 Pain in L knee worse Mode of Arrival: Ambulatory Source of Information: Patient Time Seen by Provider: 04/27/24 12:07 Description of Symptoms (Recalled from Triage Doc. by RN): PREVIOUS LEFT KNEE INJURY HEENT Symptoms (Recalled from RN notes): No Resp Symptoms (Recalled from RN notes): No Skin Symptoms (Recalled from RN notes): No MS Symptoms (Recalled from RN notes): Yes Functional Status (Recalled from RN notes): WNL History of Present Illness Provider Complaint: Patient states that she twisted her left knee on Thursday and fell on it States she was seen Thursday and had an xray but today the swelling and pain was worse so she came in wanting to see if there was something else that could be done worried she may have torn something when she twisted it, she is 35wks OB States she has been putting ice on it and taking Tylenol and wearing knee immobilzer but it hurts when she puts weight on it Denies any other symptoms Related Data Home Medications ?Medication ?Instructions ?Recorded ?Confirmed albuterol sulfate 90 mcg/actuation 2 puff inhalation Q6HP PRN Asthma 10/21/23 04/25/24 aerosol inhaler escitalopram oxalate 20 mg tablet 20 mg PO DAILY 10/21/23 04/25/24 Previous Rx's ?Medication ?Instructions ?Recorded bupropion HCl 150 mg 24 hr tablet, 150 mg PO DAILY #30 tabs 02/12/24 extended release Allergies Allergy/AdvReac Type Severity Reaction Status Date / Time No Known Allergies Allergy Verified 04/19/24 11:15 Worker's Comp Is this a Worker's Comp case?: No [facility] Disclaimer: The information contained in this section may have been updated after the patient was seen, as this information can be updated by other users. Medical History Varicose veins during , antepartum Maternal obesity affecting , antepartum Asthma Anxiety and depression Surgical History H/O endoscopy Hx of colonoscopy Hx of wisdom tooth extraction Family History Grandmother Cancer uterine Hypertension Thyroid disorder Other Coronary artery disease FHx: mental illness Social History Smoking Status: Unknown if ever smoked alcohol intake: never substance use type: denies use current occupational status: unemployed Travel in the last 8 weeks: None ROS Obtained: Yes All systems reviewed & no additional complaints except as documented and Yes Systems reviewed as appropriate & no additional complaints except as documented Constitutional Constitutional: Reports system reviewed and no additional complaints, except as documented and Reports as per HPI Eyes Eyes: Reports system reviewed and no additional complaints, except as documented and Reports as per HPI ENT Ears, Nose, Mouth, and Throat: Reports system reviewed and no additional complaints, except as documented and Reports as per HPI Cardiovascular Cardiovascular: Reports system reviewed and no additional complaints, except as documented and Reports as per HPI Respiratory Respiratory: Reports system reviewed and no additional complaints, except as documented and Reports as per HPI Gastrointestinal Gastrointestingal: Reports system reviewed and no additional complaints, except as documented and as per HPI Musculoskeletal Musculoskeletal: Reports system reviewed and no additional complaints, except as documented, Reports as per HPI and Reports other (pain and swelling in left knee after falling on Thursday) Physical Exam General General appearance: alert and in no apparent distress ENT ENT exam: Present mucous membranes moist Respiratory Respiratory exam: Present normal lung sounds bilaterally; Absent respiratory distress or wheezes Cardiovascular Cardiovascular exam: Present regular rate, normal rhythm and normal heart sounds Expanded Lower Extremity Exam Left: Knee exam: Present tenderness and swelling; Absent abrasion, laceration, ecchymosis, dislocation or erythema Lower leg exam: Present normal inspection Ankle exam: Present normal inspection Foot/toe exam: Present normal inspection Gait: observed and limited by pain Neurological Exam Neurological exam: Present alert, oriented X3 and normal gait Medical Decision Making Medical Records Screening: Per USPSTF and CDC recommendations, given the prevalence of disease in our region, it is our hospital?s policy to screen for HIV and viral Hepatitis for all patients aged 18 and over and those with ongoing risk factors. Toney Inquiry Pt receiving controlled substance: No Toney was queried for this patient: No Vital Signs: 04/27/24 12:05 Temperature 97.7 F Temperature Source Oral Pulse Rate [Left Radial] 81 Respiratory Rate 20 Blood Pressure [Left Arm] 110/72 Blood Pressure Mean [Left Arm] 84 02 Sat by Pulse Oximetry 96 Medical Decision Narrative: Discussed with patient that she needed to follow up with Orthopedics for further evaluation and testing if needed, patient was asking about MRI and informed her that we was not permitted to order those from the [facility] she would need to see her PCP or Orthopedics and discuss she is 35wks OB and was told by OB that she could take Tylenol for pain, will give crutches and encouraged patient to follow up with Orthopedics for worsening knee pain Initial Xray showed no fracture and she has not falling or reinjured her knee since Thursday so therefore did not repeat xray
[2024-04-27 12:25] VITALS: BP 110/72; PULSE 81; RESP 20; TEMP 36.5
== END 2024-04-27 12:35 | disposition home or self-care (01) ==
PROVIDERS: Emergency Provider Nurse Practitioner; PCP Nurse Practitioner Family
DX: M25.562 Pain in left knee (principal)
CPT/HCPCS: 99212; G0381

== ENCOUNTER 2024-05-03 14:21 | Outpatient (RCR) | payer BC, SELFPAY | END 2024-05-03 16:00 | disposition home or self-care (01) | LOC: PT 14:21 | PROVIDERS: Visit Provider Physician Assistant | DX: M25.562 Pain in left knee (principal) | CPT/HCPCS: 97760 ==

== ENCOUNTER 2024-05-04 09:08 | Outpatient (CLI) | payer BC, SELFPAY ==
--- NOTE | 2024-05-04 09:15 | US_ITS ---
PROCEDURE: US OB FOLLOW UP CLINICAL INDICATION: repeat scan on Placenta COMPARISON: US US OB /MATERNAL DETAIL from 01/07/2024 US US OB FOLLOW UP from 01/21/2024 FINDINGS: Transabdominal sonographic images of the pelvis were obtained. The following parameters are obtained: From her established due date she is 36weeks 5days Viable fetus in the cephalic presentation with a posterior placenta grade 2. The placenta is no longer marginal and well away from the cervix. The cervix measures 2.2 cm. Transvaginally. heart rate: 126bpm bpm. BPD: 35weeks 2days, 23 percentile HC: 35weeks 5days, 7 percentile AC: 36weeks 2days, 48 percentile FL: 34weeks 5days, 8 percentile HC/AC: 0.98 FL/BPD: 0.77 FL/AC: 0.21 Growth percentile: 27 Amniotic fluid index: 10.92cm, MVP 3.89 cm. No obvious anomalies evident. Bladder, kidneys, three-vessel cord, four chamber heart appear normal. IMPRESSION: 1. Viable fetus in the cephalic presentation with a posterior placenta grade 2. The placenta is no longer marginal. 2. The cervix is seen transvaginally and measures 2.2 cm. 3. The fluid is within normal limits with an amniotic fluid index of 10.92 cm, MVP 3.89 cm. 4. Fetus is active. 5. There has been good interval growth with the fetus currently 27th percentile. Dictated by: Carson Walker MD 05/04/2024 11:26 Carson Walker MD in OV 05/04/2024 11:26
== END 2024-05-04 23:59 | disposition home or self-care (01) ==
PROVIDERS: PCP Nurse Practitioner Family; Visit Provider Obstetrics & Gynecology
DX: Z36.2 Encounter for other antenatal screening follow-up (principal); Z3A.36 36 weeks gestation of pregnancy
CPT/HCPCS: 76816

== ENCOUNTER 2024-05-10 10:55 | Outpatient (CLI) | payer BC, SELFPAY | END 2024-05-10 23:59 | disposition home or self-care (01) | LOC: LAB.DROPOF 05-11 12:37 | PROVIDERS: PCP Obstetrics & Gynecology; Visit Provider Obstetrics & Gynecology | DX: Z34.90 Encounter for supervision of normal pregnancy, unspecified, unspecified trimester (principal) | CPT/HCPCS: 86403 ==

== ENCOUNTER 2024-05-16 04:26 | Inpatient (IN) | payer BC, SELFPAY ==
[2024-05-16 04:04] VITALS: BMI 35.9
[2024-05-16 05:07] VITALS: BP 113/71; PULSE 85; RESP 18; TEMP 36.8; O2SAT 96; BMI 35.9
[2024-05-16 05:39] LABS: Basophils % 0.4 % (0.1-2.0); Eosinophils # 0.4 K/mm3 (0.0-0.4); Eosinophils % 4.1 % (0.1-12.0); Hemoglobin 12.9 g/dL (12.2-16.2); Lymphocytes % 20.4 % (10-50); Mean Corpuscular Volume 91.4 fl (81-99); Mean Platelet Volume 8.1 fl (7.4-10.4); Monocytes # 0.7 K/mm3 (0.1-1.0); Monocytes % 6.9 % (1.7-9.3); Neutrophils # 6.6 K/mm3 (1.8-7.8); Neutrophils % 68.2 % (37.0-80.0); Platelet Count 266 K/mm3 (142-424); Red Blood Count 4.16 M/mm3 (4.20-5.40); Red Cell Distribution Width 13.5 % (11.5-17.5); White Blood Count 9.7 K/mm3 (4.8-10.8)
--- NOTE | 2024-05-16 06:14 | P.HP_ITS ---
OB - H&P: HPI Antepartum History of Present Illness Chief complaint: regular, painful contractions History of present illness: Mrs Shaneka Vera is a 34 yo at 38w3d who presents to [facility] L&D with complaint of regular, painful contractions. She states she has been having contractions since yesterday. The contractions kept her up all night and became more intense around 0200 this morning. Baby is active. No leakage of fluid or vaginal bleeding. She has had good care. GBS negative. Upon arrival to L&D cervical exam was / with bulging bag. History of Present Criteria for establishing EDC:: LMP confirmed by 1st trimester US care: good care Ultrasounds: normal mid trimester US Obstetrical complications: none Medical complications: none Labs Blood type: O (+) positive Rubella: immune RPR/VDRL: nonreactive GBS status: negative HBsAG: negative [facility] Disclaimer: The information contained in this section may have been updated after the patient was seen, as this information can be updated by other users. Medical History (Updated 05/16/24 @ 06:21 by Catarina Meléndez DO) 38 weeks gestation of Active labor Varicose veins during , antepartum Maternal obesity affecting , antepartum Asthma Anxiety and depression Surgical History H/O endoscopy Hx of colonoscopy Hx of wisdom tooth extraction Family History Grandmother Cancer uterine Hypertension Thyroid disorder Other Coronary artery disease FHx: mental illness Social History Smoking Status: Unknown if ever smoked alcohol intake: never substance use type: denies use current occupational status: unemployed Travel in the last 8 weeks: None Other Medical History Have you received the Flu Vaccine for this season: No Have you received the Pneumonia Vaccine: No Review of Systems Review of Systems Review of systems:: pertinent systems reviewed and negative unless documented below *Genitourinary Comments: + regular, painful contractions Meds Home Medications and Allergies Home Medications ?Medication ?Instructions ?Recorded ?Confirmed ?Type albuterol sulfate 90 mcg/actuation 2 puff inhalation Q6HP PRN Asthma 10/21/23 05/10/24 History aerosol inhaler escitalopram oxalate 20 mg tablet 20 mg PO DAILY 10/21/23 05/10/24 History bupropion HCl 150 mg 24 hr tablet, 150 mg PO DAILY #30 tabs 02/12/24 05/10/24 Rx extended release albuterol sulfate 2.5 mg/3 mL mg continuous nebulization 05/10/24 05/10/24 History (0.083 %) solution for nebulization New Prescriptions to Start Prescriptions: Allergies Allergy/AdvReac Type Severity Reaction Status Date / Time No Known Allergies Allergy Verified 05/10/24 10:49 OB - H&P: Exam Physical Exam Vital signs: Temp Pulse Resp BP Pulse Ox O2 Del Method 98.2 F 85 18 113/71 96 Room Air 05/16/24 05:07 05/16/24 05:07 05/16/24 05:07 05/16/24 05:07 05/16/24 05:07 05/16/24 05:07 Constitutional no acute distress and cooperative Routine HEENT Exam Head: Present normocephalic and atraumatic Eye: Absent conjunctivae pink ENT: Present mucous membranes moist Routine Neck Exam Present full ROM Routine Respiratory Exam Present CTA bilaterally and normal respiratory effort Routine Cardiovascular Exam Present RRR Routine Abdominal Exam Present soft (Gravid); Absent tenderness Routine Rectal Exam Visual: Present normal rectal tone Routine Exam External: Present normal urethra appearance; Absent erythema, swelling, tenderness, lesions or lacerations Routine Extremities Exam Present full ROM; Absent edema or calf tenderness Routine Neurological Exam Present alert, moving all extremities and normal speech Routine Psychiatric Exam Present normal affect and cooperative Detailed Labor and Delivery Exam Dilation (cm): 9 Effacement (%): 90 Cervix position: anterior station: 0 Consistency: soft Membranes: artificially ruptured Amniotic fluid: clear Baseline heart rate: 125 monitor accelerations: Present monitor decelerations: None long-term variability: Average (6-10) Tachysystole: No OB - A/P Antepartum (1) Active labor: Status: Acute (2) 38 weeks gestation of : Status: Acute (3) Maternal obesity affecting , antepartum: Status: Acute (4) Asthma affecting , antepartum: Status: Acute Additional Plan Planning to breastfeed?: Yes Additional Information:: Admit to L&D for active labor GBS negative Close monitoring Anticipate
[2024-05-16 06:34] LABS: Microscopic, Urine URINE MICROSCOPIC (MICROSCOPIC)
[2024-05-16 07:02] LABS: Appearance,Urine CLEAR (Clear); Bilirubin,Urine Negative (Negative); Blood, Urine TRACE-I (Negative); Color,Urine YELLOW (Yellow); Glucose,Urine (UA) Negative (Negative); Ketones,Urine Negative (Negative); Leukocyte Esterase,Urine 1+ (Negative); Nitrate,Urine Negative (Negative); PH,Urine 5.5 (5.0-8.5); Protein,Urine Negative (Negative); Specific Gravity, Urine >= 1.030 (1.005-1.030); Urobilinogen,Urine 0.2 EU/dl (0.2)
--- NOTE | 2024-05-16 07:15 | EXP.DN ---
Delivery Note Delivery Date:: 05/16/24 Delivery Time:: 06:49 Anesthesia Type: Local Was labor medically induced?: No Gestational age (weeks): 38 delivered prior to 39 weeks?: Yes Justification for early elective delivery:: Active Labor Infant Gender: Female at 1 minute: 7 at 5 minutes: 9 LAC or MLE?: LAC Delivery Procedure:: Mom complete without epidural. Pushed for approximately 8 minutes. Head delivered spontaneously over intact perineum in ANN position. No nuchal cord. Shoulder dystocia resolved within 30 seconds with suprapubic pressure and Raz manuever. Anterior shoulder delivered with above maneuvers. Posterior shoulder and remainder of body delivered spontaneously. Baby placed on maternal abdomen, mouth and nares bulb suctioned, warmed/dried and stimulated. Delayed cord clamping was performed for 5 minutes at maternal request. Cord was clamped and cut by father of baby. Cord blood was obtained. Placenta delivered spontaneously and intact. Second degree perineal laceration repaired with 3-0 Vicryl. Hemostasis noted. Mom and baby were skin to skin and doing well after delivery. Live female baby (baby's name is undecided) APGARs 7 (1 min), 9 (5 min) EBL 200 mL Placental Delivery Description: Spontaneous
[2024-05-16 07:41] LABS: Calcium Oxalate Crystals,Urine Trace /lpf; RBC,Urine Occasional #/hpf (0-3); WBC,Urine Occasional #/hpf (0-3)
[2024-05-16 07:42] LABS: Amphetamine/Metha Screen,Urine Negative ng/ml (<1000)
[2024-05-16 07:43] LABS: Barbiturates Screen,Urine Negative ng/ml (<200); Benzodiazepines Screen,Urine Negative ng/ml (<200)
[2024-05-16 07:44] LABS: Cannabinoid Screen,Urine Negative ng/ml (<50); Cocaine Screen,Urine Negative ng/ml (<300)
[2024-05-16 07:45] LABS: Methadone Screen,Urine Negative ng/ml (<300)
[2024-05-16 07:46] LABS: Opiate Screen,Urine Negative ng/ml (<300); Phencyclidine Screen,Urine Negative ng/ml (<25)
--- NOTE | 2024-05-16 07:59 | HMH.PHAINT1 ---
Pharmacy Intervention Comments: MEDICATION RECONCILIATION COMPLETED ON PATIENT USING EXTERNAL FILL HISTORY FROM PHARMACY. -ISAURO DERAS, KRYSTIND
[2024-05-16] MEDS: WITCH HAZEL 40 PADS/BOX 1 EACH TP (08:04)
[2024-05-16] MEDS: BENZOCAINE-MENTHOL SPRAY 56GM CAN TP (08:05)
[2024-05-16] MEDS: IBUPROFEN 400 MG TABLET 800 MG PO ×2 (08:05→17:34)
[2024-05-16] MEDS: ACETAMINOPHEN 500MG TAB 1000 MG PO ×3 (08:06→23:10)
[2024-05-16] MEDS: CYCLOBENZAPRINE 10MG TABLET 5 MG PO (12:58)
[2024-05-16] MEDS: SENNA 8.6MG TABLET 8.6 MG PO (12:58)
[2024-05-16] MEDS: LANOLIN CREAM 40GM TP (12:58)
[2024-05-16] MEDS: PRENATAL MULTIVITAMIN W/IRON 1 EACH PO (17:32)
[2024-05-17] MEDS: IBUPROFEN 400 MG TABLET 800 MG PO (04:28)
[2024-05-17 07:00] LABS: Hematocrit 34.1 % (37.0-47.0); Hemoglobin 11.3 g/dL (12.2-16.2)
[2024-05-17 08:31] VITALS: BP 119/56; PULSE 85; RESP 17; TEMP 36.7; O2SAT 96
--- NOTE | 2024-05-17 10:17 | EXP.DC.SUM ---
General Admission date:: 05/16/24 Discharge date: 05/17/24 HPI HPI HPI: Chief complaint: regular, painful contractions History of present illness: Mrs Shaneka Vera is a 34 yo at 38w3d who presents to [facility] L&D with complaint of regular, painful contractions. She states she has been having contractions since yesterday. The contractions kept her up all night and became more intense around 0200 this morning. Baby is active. No leakage of fluid or vaginal bleeding. She has had good care. GBS negative. Upon arrival to L&D cervical exam was / with bulging bag. History of Present Criteria for establishing EDC:: LMP confirmed by 1st trimester US care: good care Ultrasounds: normal mid trimester US Obstetrical complications: none Medical complications: none Labs Blood type: O (+) positive Rubella: immune RPR/VDRL: nonreactive GBS status: negative HBsAG: negative Hospital Course Hospital Course Hospital Course: Delivery Date:: 05/16/24 Delivery Time:: 06:49 Anesthesia Type: Local Was labor medically induced?: No Gestational age (weeks): 38 Infant delivered prior to 39 weeks?: Yes Justification for early elective delivery:: Active Labor Gender: Female at 1 minute: 7 at 5 minutes: 9 LAC or MLE?: LAC Delivery Procedure:: Mom complete without epidural. Pushed for approximately 8 minutes. Head delivered spontaneously over intact perineum in ANN position. No nuchal cord. Shoulder dystocia resolved within 30 seconds with suprapubic pressure and Raz manuever. Anterior shoulder delivered with above maneuvers. Posterior shoulder and remainder of body delivered spontaneously. Baby placed on maternal abdomen, mouth and nares bulb suctioned, warmed/dried and stimulated. Delayed cord clamping was performed for 5 minutes at maternal request. Cord was clamped and cut by father of baby. Cord blood was obtained. Placenta delivered spontaneously and intact. Second degree perineal laceration repaired with 3-0 Vicryl. Hemostasis noted. Mom and baby were skin to skin and doing well after delivery. Live female baby (baby's name is undecided) APGARs 7 (1 min), 9 (5 min) EBL 200 mL Female infant: Francie Santana. Weight: [id number] Routine course, uncomplicated. Reports that she is still having a significant amount of bleeding and cramping especially with nursing. She is exclusively breast-feeding. Reports that her mood is stable for the time but she is concerned for developing depression. Routine discharge options reviewed in detail and the patient voiced understanding Exam Data for Last 24 hours Vital signs and Labs for Last 24 Hours: Temp Pulse Resp BP Pulse Ox O2 Del Method 98.0 F 85 17 119/56 L 96 Room Air 05/17/24 08:31 05/17/24 08:31 05/17/24 08:31 05/17/24 08:31 05/17/24 08:31 05/17/24 08:31 Laboratory Results - last 24 hr 05/17/24 06:22: Hgb 11.3 L, Hct 34.1 L I & O for Last 24 hours: Intake & Output 05/14/24 05/15/24 05/16/24 05/17/24 23:59 22:59 23:59 23:59 Weight 223 lb Results Data Completed and Pending Labs on day of discharge: Labs from last 24 hours 05/17/24 06:22 Hgb 11.3 L Hct 34.1 L DS: Diagnosis Discharge Diagnosis (1) Active labor: Status: Acute (2) 38 weeks gestation of : Status: Acute Code(s): Z3A.38 - 38 weeks gestation of (3) Maternal obesity affecting , antepartum: Status: Acute Code(s): O99.210 - Obesity complicating , unspecified trimester (4) Asthma affecting , antepartum: Status: Acute Code(s): O99.519 - Diseases of the respiratory system complicating , unspecified trimester; J45.909 - Unspecified asthma, uncomplicated Meds Home Medications and Allergies Home Medications ?Medication ?Instructions ?Recorded ?Confirmed ?Type albuterol sulfate 2.5 mg/3 mL 2.5 mg inhalation QID 05/16/24 05/16/24 History (0.083 %) solution for nebulization montelukast 10 mg tablet 10 mg PO PM 05/16/24 05/16/24 History acetaminophen 500 mg tablet 500 mg PO Q6H PRN fever or pain 05/17/24 Rx #30 tabs ibuprofen 800 mg tablet 800 mg PO Q8H PRN pain #60 tabs 05/17/24 Rx sennosides 8.6 mg tablet (Senna 8.6 mg PO BIDP PRN Constipation 05/17/24 Rx Lax) #60 tabs New Prescriptions to Start Prescriptions: acetaminophen Karen Orozco ibuprofen Karen Orozco sennosides [Senna Lax] Karen Orozco Allergies Allergy/AdvReac Type Severity Reaction Status Date / Time No Known Allergies Allergy Verified 05/10/24 10:49 Discharge Plan Disposition Patient Disposition: Home, Self-Care Discharge Order Discharge Orders: Discharge Order (Routine); Ordered 05/17/24 Ordered By: Karen Orozco Follow up Plan Follow up with: Karen Orozco DO [Staff Physician] - 2 weeks Prescriptions/Medication Reconciliation: New sennosides [Senna Lax] 8.6 mg Tablet 8.6 mg PO BIDP PRN (Reason: Constipation) Qty: 60 2RF ibuprofen 800 mg tablet 800 mg PO Q8H PRN (Reason: pain) Qty: 60 2RF acetaminophen 500 mg tablet 500 mg PO Q6H PRN (Reason: fever or pain) Qty: 30 3RF Continued albuterol sulfate 2.5 mg /3 mL (0.083 %) solution for nebulization 2.5 mg inhalation QID Patient Comments: USE DIRECTED 4 TIMES DAILY montelukast 10 mg tablet 10 mg PO PM Patient Comments: TAKE 1 TABLET BY MOUTH ONCE DAILY Problem Reconciliation Problems Reviewed?: Yes Patient Discharge Instructions DIET: regular diet Additional Instructions: Congratulations on the delivery of your sweet baby girl. It is my privilege to be your doctor. Discharge: -Take 800 mg Ibuprofen every 8 hours as needed for pain. You can also take 500-1000 mg of Tylenol in between doses, every 6-8 hours. -Colace can be taken 1-2 times per day as you need to soften your stool. Make sure to drink at least 8 cups of water per day. -Iron supplements can make you constipated. You can take iron tablets every other day if constipation is too bad. -Nothing in the vagina for 6 weeks - no intercourse, douching, tampons. No tub baths or swimming pools. -Do not lift greater than 20pounds for 2 weeks, this is the equivalent of 2 gallons of milk. -Reasons to return to L&D or call On-Call doctor - fever (greater than 100.4) - heavy vaginal bleeding (soaking through 1 pad in less than 2 hours or passing clots that are egg sized) - vaginal discharge (malodorous and/or purulent) - severe headaches, leg tenderness/edema, or any other symptoms that warrant immediate medical attention. depression/blues - Normal to feel anxious/overwhelmed for first 2 weeks - Talk to your doctor if: anxiety lasts over 2 weeks, trouble bonding with baby, withdrawing from other family members, thoughts of harming yourself or others Karen Orozco DO [facility] [phone] *Nothing in the Vagina for 6 weeks* *No strenuous activity* *No heavy lifting* *No tub baths until okay's by MD* Patient Instructions: Depression, Hemorrhage, DI for Labor and Delivery, Vaginal , DI for Pre-eclampsia, [facility] Post Discharge Instructions Print Language: Yi Providers Primary Care Provider: Reyna Garibay Admit Provider: Catarina Meléndez Attending Provider: Catarina Meléndez
[2024-05-17 12:19] LABS: Rapid Plasma Reagin Ab Titer Non Reactive titer (NonRea<1:1)
== END 2024-05-17 18:18 | disposition home or self-care (01) | DRG 807 ==
LOC: OBOUT 04:29 → OB 04:29
PROVIDERS: Admitting Provider Obstetrics & Gynecology; PCP Nurse Practitioner Family; Visit Provider Obstetrics & Gynecology
DX: O70.1 Second degree perineal laceration during delivery (principal); Z37.0 Single live birth; Z3A.38 38 weeks gestation of pregnancy; O99.214 Obesity complicating childbirth; O99.52 Diseases of the respiratory system complicating childbirth; J45.909 Unspecified asthma, uncomplicated; E66.01 Morbid (severe) obesity due to excess calories
CPT/HCPCS: 36415; 59025; 80307; 81001; 85014; 85018; 85025; 86593; 86850; 87086

== ENCOUNTER 2024-05-25 15:13 | Outpatient (CLI) | payer BC, SELFPAY ==
[2024-05-25 16:03] LABS: Basophils # 0.1 K/mm3 (0-0.2); Basophils % 0.7 % (0.1-2.0); Eosinophils # 0.5 K/mm3 (0.0-0.4); Eosinophils % 5.3 % (0.1-12.0); Hematocrit 38.4 % (37.0-47.0); Hemoglobin 12.9 g/dL (12.2-16.2); Lymphocytes # 2.5 K/mm3 (0.7-4.5); Lymphocytes % 25.1 % (10-50); Mean Corpuscular HGB Conc 33.7 g/dL (31.8-35.4); Mean Corpuscular Hemoglobin 31.1 pg (27.0-31.2); Mean Corpuscular Volume 92.5 fl (81-99); Mean Platelet Volume 7.2 fl (7.4-10.4); Monocytes # 0.7 K/mm3 (0.1-1.0); Monocytes % 6.6 % (1.7-9.3); Neutrophils # 6.3 K/mm3 (1.8-7.8); Neutrophils % 62.3 % (37.0-80.0); Platelet Count 450 K/mm3 (142-424); Red Blood Count 4.15 M/mm3 (4.20-5.40); Red Cell Distribution Width 13.2 % (11.5-17.5)
[2024-05-25 16:10] LABS: Albumin/Globulin Ratio 1.3 (1.1-1.8); Blood Urea Nitrogen 16 mg/dl (7-17); Calcium 9.2 mg/dl (8.4-10.2); Carbon Dioxide 23 mmol/L (22.0-30.0); Estimated Glomerular Filt Rate 83 ml/min (>60); GFR (African American) 100 ML/MIN (>60); Globulin 3.2 g/dL (1.3-3.2); Glucose 72 mg/dl (74-100); Potassium 4.4 mmoL/L (3.5-5.1); Total Protein,Serum 7.2 g/dl (6.3-8.2)
[2024-05-25 16:11] LABS: Alanine Aminotransferase 33 U/L (12-78); Alkaline Phosphatase 84 U/L (38-126); Anion Gap 15.4 mEq/L (5-15); Aspartate Amino Transferase 27 U/L (14-36); Bilirubin,Total 0.4 mg/dl (0.2-1.3); Chloride 106 mmol/L (98-107); Sodium 140 mmol/L (136-145)
[2024-05-25 16:15] LABS: C-Reactive Protein 3.5 mg/L (0-4)
== END 2024-05-25 23:59 | disposition home or self-care (01) ==
LOC: LAB 15:14
PROVIDERS: PCP Nurse Practitioner Family; Visit Provider Obstetrics & Gynecology
DX: R10.9 Unspecified abdominal pain (principal)
CPT/HCPCS: 36415; 80053; 85025; 86140

== ENCOUNTER 2024-06-03 07:20 | Outpatient (CLI) | payer BC, SELFPAY ==
--- NOTE | 2024-06-03 07:20 | US_ITS ---
FINAL REPORT CLINICAL HISTORY: US Gallbladder, RUQ Pain -Post Delivery COMPARISON: None FINDINGS: RUQ ULTRASOUND: Sonographic images of the right upper quadrant were obtained. The pancreas is partially obscured.The liver has an unremarkable appearance. Multiple large gallstones are present in the gallbladder. There is no evidence of biliary ductal dilatation.The common duct measures 2 mm. Limited images of the right kidney are unremarkable. IMPRESSION: Multiple large gallstones are present in the gallbladder, without evidence of biliary ductal dilatation. Reviewed, Interpreted and Dictated by Bob Bush MD Transcribed by Hallie Valdivia Authenticated and [facility]
== END 2024-06-03 23:59 | disposition home or self-care (01) ==
LOC: RAD 07:20
PROVIDERS: PCP Nurse Practitioner Family; Visit Provider Obstetrics & Gynecology
DX: R10.11 Right upper quadrant pain (principal); Z39.2 Encounter for routine postpartum follow-up
CPT/HCPCS: 76705

== ENCOUNTER 2024-07-14 19:12 | Emergency (ER) | payer BC, SELFPAY ==
[2024-07-14 19:15] VITALS: BP 134/78; PULSE 134; RESP 18; TEMP 36.9; O2SAT 94; BMI 33.2
--- NOTE | 2024-07-14 19:22 | ECG_ITS ---
APPROVED REPORT Exam: Resting ECG HR:128 bpm ECG Measurements Heart Rate 128 AXES TX 155 P 6 QRSd 93 QRS 138 QT 302 T 8 QTc [address]ressions with T wave changes in inferior leads and anterolateral leads Electronically signed by : TRAY MAJANO, 07/14/2024 20:31:22
--- NOTE | 2024-07-14 19:24 | ED_ITS ---
Discharge Plan Disposition Patient Disposition: Home, Self-Care Prescriptions Prescriptions: New doxycycline hyclate 100 mg capsule 100 mg PO BID 7 Days Qty: 14 0RF prednisone 20 mg tablet 40 mg PO DAILY 5 Days Qty: 10 0RF ondansetron 4 mg tablet,disintegrating 4 mg PO Q6H PRN (Reason: nausea and vomiting) Qty: 10 0RF No Action albuterol sulfate 2.5 mg /3 mL (0.083 %) solution for nebulization 2.5 mg inhalation QID Patient Comments: USE DIRECTED 4 TIMES DAILY montelukast 10 mg tablet 10 mg PO PM Patient Comments: TAKE 1 TABLET BY MOUTH ONCE DAILY sennosides [Senna Lax] 8.6 mg Tablet 8.6 mg PO BIDP PRN (Reason: Constipation) Qty: 60 2RF ibuprofen 800 mg tablet 800 mg PO Q8H PRN (Reason: pain) Qty: 60 2RF acetaminophen 500 mg tablet 500 mg PO Q6H PRN (Reason: fever or pain) Qty: 30 3RF Referrals Follow up/Referrals: Reyna Garibay [Primary Care Provider] - See instructions Activity Restrictions/Add. Instructions Additional Instructions/Restrictions: Call your family doctor to establish care for this visit to the emergency department and schedule follow-up within 48 hours to ensure improvement. If you have any worsening of your condition or any other concerning signs or symptoms, return to the emergency department or your primary care doctor for further evaluation. Clinical Impressions Clinical Impression: Pneumonia, Vomiting, Hypoxemia Instructions Patient Instructions: DI for Diarrhea and Traveler's Diarrhea -- Adult, DI for Diarrhea and Traveler's Diarrhea -- Child, DI for Nausea -- Adult, DI for Nausea -- Child Print Language Print Language: Romansh Discharge ED Provider: Paul Castro General Adult HPI <SUKH Anderson - Last Filed: 07/14/24 19:24> General Chief complaint: Nausea/Vomiting/Diarrhea Stated complaint: Vomiting,fever,blue lips,chest tightness Time Seen by Provider: 07/14/24 19:21 Related Data Home Medications ?Medication ?Instructions ?Recorded ?Confirmed albuterol sulfate 2.5 mg/3 mL 2.5 mg inhalation QID 05/16/24 06/15/24 (0.083 %) solution for nebulization montelukast 10 mg tablet 10 mg PO PM 05/16/24 06/15/24 Previous Rx's ?Medication ?Instructions ?Recorded acetaminophen 500 mg tablet 500 mg PO Q6H PRN fever or pain 05/17/24 #30 tabs ibuprofen 800 mg tablet 800 mg PO Q8H PRN pain #60 tabs 05/17/24 sennosides 8.6 mg tablet (Senna 8.6 mg PO BIDP PRN Constipation 05/17/24 Lax) #60 tabs doxycycline hyclate 100 mg capsule 100 mg PO BID 7 days #14 caps 07/14/24 ondansetron 4 mg disintegrating 4 mg PO Q6H PRN nausea and 07/14/24 tablet vomiting #10 tabs prednisone 20 mg tablet 40 mg (2 x 20 mg) PO DAILY 5 days 07/14/24 #10 tabs Allergies Allergy/AdvReac Type Severity Reaction Status Date / Time No Known Allergies Allergy Verified 06/15/24 13:18 <Paul Castro MD - Last Filed: 07/14/24 23:05> History of Present Illness HPI narrative: Please note that above description of symptoms, in this electronic medical record under categorization of recalled from ER triage doctor by RN are reflective of an initial nursing assessment, however, is not reflective of my full history and physical exam that was personally taken and clarified. Consequentially, this preceding description of symptoms, which may include the patient's categorized chief complaint in the EMR, do not reflect my personal clinical impression, and the ultimate description of history of present illness and patient stated complaints should be deferred to this section of the note. Unless stated otherwise or congruent with this section of the note, additional signs, symptoms, or incongruence should be interpreted as inaccurate with my clinical impression. [facility] <SUKH Anderson - Last Filed: 07/14/24 19:24> [facility] Disclaimer: The information contained in this section may have been updated after the patient was seen, as this information can be updated by other users. Medical History (Updated 07/14/24 @ 23:05 by Paul Castro MD) Varicose veins during , antepartum Asthma Anxiety and depression Surgical History H/O endoscopy Hx of colonoscopy Hx of wisdom tooth extraction Family History Grandmother Cancer uterine Hypertension Thyroid disorder Other Coronary artery disease FHx: mental illness Social History Smoking Status: Never smoker alcohol intake: never substance use type: denies use current occupational status: unemployed Travel in the last 8 weeks: None Have you lived/traveled outside [place] in past 30 days?: No Contact w/someone who lives/traveled outside US past 30 days?: No Exposure to someone with infectious disease in past 14 days?: No Do you have a fever (greater than 100.4 F or 38 C)?: Yes Have you tested positive for COVID-19: No Exposed to someone with COVID-19 in past 14 days?: No Do you have a sore throat?: No Do you have a cough?: No Do you have any weakness?: No Do you have any diarrhea?: No Are you experiencing any unusual bleeding?: No Do you have any muscle aches/pain?: No Do you have any abdominal pain?: No Are you experiencing loss of taste or smell?: No Other Medical History Have you received the Flu Vaccine for this season: No Have you received the Pneumonia Vaccine: No <SUKH Anderson - Last Filed: 07/14/24 19:24> ROS Obtained: Yes Systems reviewed as appropriate & no additional complaints except as documented Physical Exam <SUKH Anderson - Last Filed: 07/14/24 19:24> General General appearance: alert and in no apparent distress Head Head exam: atraumatic and normal inspection Eye Eye exam: Present normal appearance, PERRL and EOMI ENT ENT exam: Present normal exam, normal oropharynx and mucous membranes moist Neck Neck exam: Present normal inspection, full ROM and trachea midline; Absent lymphadenopathy Chest Chest inspection: Present normal inspection and symmetric chest wall rise Respiratory Respiratory exam: Present normal lung sounds bilaterally; Absent accessory muscle use Cardiovascular Cardiovascular exam: Present regular rate, normal rhythm, normal heart sounds, +S1 and +S2 Abdominal Exam Abdominal exam: Present soft and normal bowel sounds; Absent tenderness, guarding or rebound Extremities Exam Extremities exam: Present normal inspection and full ROM Neurological Exam Neurological exam: Present alert, oriented X3 and CN II-XII intact Psychiatric Psychiatric exam: Present normal affect and normal mood Skin Skin exam: Present warm, dry and normal color Lymphatic Lymphatic Findings: no adenopathy Medical Decision Making <SUKH Anderson - Last Filed: 07/14/24 19:24> Medical Records Screening: Per USPSTF and CDC recommendations, given the prevalence of disease in our region, it is our hospital?s policy to screen for HIV and viral Hepatitis for all patients aged 18 and over and those with ongoing risk factors. Vital Signs: 07/14/24 19:15 Temperature 98.5 F Temperature Source Temporal Artery Scan Pulse Rate [Right] 134 H Respiratory Rate 18 Blood Pressure [Right Arm] 134/78 Blood Pressure Mean [Right Arm] 96 02 Sat by Pulse Oximetry 94 L Oxygen Delivery Method Room Air Lab Data Lab Results 07/14/24 19:25: WBC 8.4, RBC 4.65, Hgb 14.0, Hct 42.9, MCV 92.3, MCH 30.1, MCHC 32.6, RDW 12.9, Plt Count 270, MPV 10.2, Neut % (Auto) 74.0, Lymph % (Auto) 16.5, Miller % (Auto) 6.6, Eos % (Auto) 2.0, Baso % (Auto) 0.5, Neut # (Auto) 6.3, Lymph # (Auto) 1.4, Miller # (Auto) 0.6, Eos # (Auto) 0.2, Baso # (Auto) 0.0, D- Dimer 0.63 H, Sodium 139, Potassium 4.7, Chloride 104, Carbon Dioxide 25, Anion Gap 14.7, BUN 19 H, Creatinine 0.70, Estimated Creat Clear 169, Estimated GFR 96, Est GFR ( Amer) 117, Glucose 92, Calcium 9.1, Magnesium 1.6, Total Bilirubin 0.4, AST 51 H, ALT 43, Alkaline Phosphatase 68, Total Protein 8.1, Albumin 4.6, Globulin 3.5 H, Albumin/Globulin Ratio 1.3, Lipase 88, HCG, Quant < 2, HIV Ag/Ab Combo Qual Negative 07/14/24 22:02: VBG pH 7.46 H, VBG pCO2 29.8 L, VBG pO2 55.6 H, VBG HCO3 20.8 L, VBG Total CO2 21.7 L, VBG O2 Saturation 91.3 H, VBG Base Excess -3.0 L, VBG Lactic Acid 3.4 H 07/14/24 19:25 07/14/24 19:25 Orders (Tests/Meds): ED MEDICATIONS Generic Name Dose Route Start Last Admin Trade Name Flaquito PRN Reason Stop Dose Admin Sodium Chloride 10 ml 07/14/24 22:22 07/14/24 22:22 Sodium Chloride 0.9% 10ml Syr (Rad Only) IV 08/13/24 22:21 10 ml NEEDED PRN Administration Maintain IV Site Discontinued Medications Generic Name Dose Route Start Last Admin Trade Name Flaquito PRN Reason Stop Dose Admin Dexamethasone Sodium Phosphate 10 mg 07/14/24 22:43 07/14/24 22:58 Dexamethasone 4mg/Ml 1ml Vial IV 07/14/24 22:44 10 mg ONCE ONE Administration Droperidol 2.5 mg 07/14/24 19:59 07/14/24 20:01 Droperidol 5mg/2ml Vial IV 07/14/24 20:00 2.5 mg ONCE ONE Administration Lactated Ringer's 1,000 mls @ 999 mls/hr 07/14/24 19:24 07/14/24 19:38 Lactated Ringer's 1000 Ml Bag IV 07/14/24 20:24 999 mls/hr .Q1H1M ONE Administration Ceftriaxone Sodium 2 gm/ 100 mls @ 200 mls/hr 07/14/24 22:03 07/14/24 22:24 Sodium Chloride IV 07/14/24 22:32 200 mls/hr ONCE ONE Administration Iopamidol 70 ml 07/14/24 22:22 07/14/24 22:23 Iopamidol-370 (76%);100ml Bottle IV 07/14/24 22:23 70 ml ONCE ONE Administration Promethazine HCl 25 mg 07/14/24 19:24 07/14/24 19:33 Promethazine Hcl 25mg/Ml 1ml Vial IV 07/14/24 19:25 25 mg ONCE ONE Administration Sodium Chloride 25 ml 07/14/24 19:24 07/14/24 19:33 Sodium Chloride 0.9% 25ml Bag IV 07/14/24 19:25 25 ml ONCE ONE Administration Sodium Chloride 50 ml 07/14/24 22:22 07/14/24 22:23 0.9 % Sodium Chloride 50 Ml Vial IV 07/14/24 22:23 50 ml ONCE ONE Administration ORDERS Category Date Time Status CT angio chest PE protocol Stat Cat Scan 07/14/24 21:59 Completed CXR --portable [XR chest portable] Stat Exams 07/14/24 20:22 Completed CBC w/Auto Diff [Complete Blood Count Auto Diff] Stat Lab 07/14/24 19:25 Completed CMP [Comprehensive Metabolic Panel] Stat Lab 07/14/24 19:25 Completed D-Dimer Stat Lab 07/14/24 19:25 Completed HCG,Quantitative Stat Lab 07/14/24 19:25 Completed HIV Combo Stat Lab 07/14/24 19:25 Completed Hep C Ab with Reflex to RNA Stat Lab 07/14/24 19: Received Lipase Stat Lab 07/14/24: Completed Magnesium Stat Lab 07/14/24 19:25 Completed VBG [Venous Blood Gas] Stat RT 07/14/24 22:02 Completed Medical Decision Narrative: In summary patient is a [age, sex] who presents to the emergency department for evaluation of [complaint]. Patient is [hemodynamically stable/unstable] upon arrival, [febrile/afebrile]. [Unremarkable physical exam, nonfocal exam versus focal remarkable exam]. Differential diagnosis includes [DDx]. Initial workup will be conducted with [hematologic labs, imaging, respiratory swab, describe workup]. Initial interventions include [crystalloid bolus, medications, p.o. challenge, etc.] initial workup reviewed by me [hematologic labs are remarkable for... Imaging remarkable for... Urinalysis remarkable for]. Upon repeat evaluation [patient had acceptable resolution of symptoms, had persistent pain for which additional interventions were conducted (describe interventions), tolerated p.o., was ambulatory, etc.]. Given this [patient is appropriate for discharge at this time and will be discharged with a prescription for... The case was discussed with hospital medicine regarding management and they will admit the patient their service for continued evaluation at this time... Etc.] Places where you can increase complexity: I informally interpreted the patient's chest x-ray or CT read and is remarkable for... Documenting what the quality assurance monitor shows with rate and rhythm Consideration of test but deferring. Ex: I considered chest x-ray on this patient however given that they have no oxygen requirement and are clear to auscultation all lung beck will be deferred. Social determinants of health: Given that patient is undomiciled increases complexity. Given that patient has polysubstance abuse compounds all aspects of care <Paul Castro MD - Last Filed: 07/14/24 23:05> Medical Records Medical records reviewed: Yes I reviewed the patient's medical records. Toney Inquiry Pt receiving controlled substance: No Toney was queried for this patient: No Vital Signs: 07/14/24 19:15 Temperature 98.5 F Temperature Source Temporal Artery Scan Pulse Rate [Right] 134 H Respiratory Rate 18 Blood Pressure [Right Arm] 134/78 Blood Pressure Mean [Right Arm] 96 02 Sat by Pulse Oximetry 94 L Oxygen Delivery Method Room Air Lab Data Lab Results 07/14/24 19:25: WBC 8.4, RBC 4.65, Hgb 14.0, Hct 42.9, MCV 92.3, MCH 30.1, MCHC 32.6, RDW 12.9, Plt Count 270, MPV 10.2, Neut % (Auto) 74.0, Lymph % (Auto) 16.5, Miller % (Auto) 6.6, Eos % (Auto) 2.0, Baso % (Auto) 0.5, Neut # (Auto) 6.3, Lymph # (Auto) 1.4, Miller # (Auto) 0.6, Eos # (Auto) 0.2, Baso # (Auto) 0.0, D- Dimer 0.63 H, Sodium 139, Potassium 4.7, Chloride 104, Carbon Dioxide 25, Anion Gap 14.7, BUN 19 H, Creatinine 0.70, Estimated Creat Clear 169, Estimated GFR 96, Est GFR ( Amer) 117, Glucose 92, Calcium 9.1, Magnesium 1.6, Total Bilirubin 0.4, AST 51 H, ALT 43, Alkaline Phosphatase 68, Total Protein 8.1, Albumin 4.6, Globulin 3.5 H, Albumin/Globulin Ratio 1.3, Lipase 88, HCG, Quant < 2, HIV Ag/Ab Combo Qual Negative 07/14/24 22:02: VBG pH 7.46 H, VBG pCO2 29.8 L, VBG pO2 55.6 H, VBG HCO3 20.8 L, VBG Total CO2 21.7 L, VBG O2 Saturation 91.3 H, VBG Base Excess -3.0 L, VBG Lactic Acid 3.4 H Orders (Tests/Meds): ED MEDICATIONS Generic Name Dose Route Start Last Admin Trade Name Flaquito PRN Reason Stop Dose Admin Sodium Chloride 10 ml 07/14/24 22:22 07/14/24 22:22 Sodium Chloride 0.9% 10ml Syr (Rad Only) IV 08/13/24 22:21 10 ml NEEDED PRN Administration Maintain IV Site Discontinued Medications Generic Name Dose Route Start Last Admin Trade Name Flaquito PRN Reason Stop Dose Admin Dexamethasone Sodium Phosphate 10 mg 07/14/24 22:43 07/14/24 22:58 Dexamethasone 4mg/Ml 1ml Vial IV 07/14/24 22:44 10 mg ONCE ONE Administration Droperidol 2.5 mg 07/14/24 19:59 07/14/24 20:01 Droperidol 5mg/2ml Vial IV 07/14/24 20:00 2.5 mg ONCE ONE Administration Lactated Ringer's 1,000 mls @ 999 mls/hr 07/14/24 19:24 07/14/24 19:38 Lactated Ringer's 1000 Ml Bag IV 07/14/24 20:24 999 mls/hr .Q1H1M ONE Administration Ceftriaxone Sodium 2 gm/ 100 mls @ 200 mls/hr 07/14/24 22:03 07/14/24 22:24 Sodium Chloride IV 07/14/24 22:32 200 mls/hr ONCE ONE Administration Iopamidol 70 ml 07/14/24 22:22 07/14/24 22:23 Iopamidol-370 (76%);100ml Bottle IV 07/14/24 22:23 70 ml ONCE ONE Administration Promethazine HCl 25 mg 07/14/24 19:24 07/14/24 19:33 Promethazine Hcl 25mg/Ml 1ml Vial IV 07/14/24 19:25 25 mg ONCE ONE Administration Sodium Chloride 25 ml 07/14/24 19:24 07/14/24 19:33 Sodium Chloride 0.9% 25ml Bag IV 07/14/24 19:25 25 ml ONCE ONE Administration Sodium Chloride 50 ml 07/14/24 22:22 07/14/24 22:23 0.9 % Sodium Chloride 50 Ml Vial IV 07/14/24 22:23 50 ml ONCE ONE Administration ORDERS Category Date Time Status CT angio chest PE protocol Stat Cat Scan 07/14/24 21:59 Completed CXR --portable [XR chest portable] Stat Exams 07/14/24 20:22 Completed CBC w/Auto Diff [Complete Blood Count Auto Diff] Stat Lab 07/14/24 19:25 Completed CMP [Comprehensive Metabolic Panel] Stat Lab 07/14/24 19:25 Completed D-Dimer Stat Lab 07/14/24 19:25 Completed HCG,Quantitative Stat Lab 07/14/24 19:25 Completed HIV Combo Stat Lab 07/14/24 19:25 Completed Hep C Ab with Reflex to RNA Stat Lab 07/14/24 19:25 Received Lipase Stat Lab 07/14/24 19:25 Completed Magnesium Stat Lab 07/14/24 19:25 Completed VBG [Venous Blood Gas] Stat RT 07/14/24 22:02 Completed Medical Decision Narrative: 34-year-old female with no relevant medical history presenting with cough, fevers, vomiting, body aches and general malaise. Patient states that she started having a cough a couple days prior to this. Everyone around her is sick with some kind of viral illness and she thinks she may have picked it up. She does have a history of reactive airway disease and states that she has been coughing producing clear sputum. Also states that she has been vomiting today is nonbloody, nonbilious. Still passing gas, denies urinary symptoms or diarrhea. History was obtained via conversation with patient. On arrival, patient hemodynamically stable, alert, oriented x4, appropriate, GCS 15, moving all extremities spontaneously, pupils equal and reactive to light. Full physical exam performed and significant for on comfortable appearing patient who is in mild distress secondary to vomiting and retching. She is tachycardic, mildly hypoxemic 90 to 92% on room air with perioral cyanosis. Lungs are clear without wheezes, rales. Patient has no prolonged expiratory phase or increased work of breathing. Abdomen soft, nontender, nondistended. No flank tenderness. Patient tachycardic with no murmurs gallops or rubs, no lower extremity edema. Differential includes pneumonia, bronchitis, PE, pneumothorax, sepsis, arrhythmia, gastritis, enteritis, pancreatitis, , among others. Patient placed on continuous cardiac monitoring and continuous pulse ox with initial blood pressure 134/78, heart rate 134, saturation 94% on room air. Independent interpretation of EKG shows sinus tachycardia 128 bpm with [place] 155, QRS 93, QTc 378. Patient has ST depressions in anterior lateral leads as well as inferior leads.. Patient was given Phenergan and fluids for symptomatic management and correction of underlying abnormalities. Patient continues vomiting, so was given 2.5 mg droperidol with complete resolution of vomiting. Workup independently interpreted and significant for nonactionable CBC or chemistry. Lipase negative, hCG negative. Her dimer elevated at 0.63 and given EKG findings, hypoxemia, cough and normal physical exam, CT PE ordered. Chest x-ray was independently interpreted prior to CT PE and it appears patient is developing a right lower lobe pneumonia. She was given 2 g ceftriaxone for this. On independent interpretation of imaging, patient appears to have bronchial inflammation and bilateral groundglass opacities consistent with atypical pneumonia versus viral pneumonia. See radiology read for full review of final results. On reevaluation, patient resting comfortably states that she feels much better, speaking full sentences and no longer retching. Remarkable turnaround from how she looked when she came in. Saturating appropriately. Given patient presentation, workup, history, this most likely represents multifocal pneumonia versus atypical pneumonia with hypoxemia and and acute vomiting syndrome. Prolonged conversation had with patient and family in the room. Admission offered, patient opted for home-going. I feel this is appropriate, but want to give her doxycycline, steroid for home-going. Also going to send home with Zofran for nausea. Because patient at baseline without signs or symptoms of clinical decompensation, deemed appropriate for discharge. Results were relayed to patient who voiced understanding and were agreeable to outpatient management and follow up. I discussed my clinical impression with patient and answered all questions. At this time, the evidence for any other entities in the differential is insufficient to warrant any further testing or ED observation. This was explained as well. Advisory was given that persistent or worsening symptoms require further evaluation. I confirmed the understanding of this discussion. Lead Radiologic Technologist disclaimer Much of this encounter note is an electronic buffing machine operator spoken language to printed text. Electronic buffing machine operator of the spoken language may permit errors. Although I have reviewed the note, some errors may still exist. Critical Care <Paul Castro MD - Last Filed: 07/14/24 23:05> Critical Care Time Critical Care Time: No
[2024-07-14 19:33] LABS: Eosinophils # 0.2 K/mm3 (0.0-0.4)
[2024-07-14] MEDS: SODIUM CHLORIDE 0.9% 25ML BAG 25 ML IV (19:33)
[2024-07-14] MEDS: PROMETHAZINE HCL 25MG/ML 1ML VIAL 25 MG IV (19:33)
[2024-07-14] MEDS: LACTATED RINGERS 1000ML 1,000 ML 999 ML IV (19:38)
[2024-07-14 19:40] LABS: Albumin Level 4.6 g/dl (3.5-5.0); Chloride 104 mmol/L (98-107)
[2024-07-14 19:41] LABS: Potassium 4.7 mmoL/L (3.5-5.1); Sodium 139 mmol/L (136-145)
[2024-07-14 19:43] LABS: Alanine Aminotransferase 43 U/L (12-78); Albumin/Globulin Ratio 1.3 (1.1-1.8); Alkaline Phosphatase 68 U/L (38-126); Anion Gap 14.7 mEq/L (5-15); Aspartate Amino Transferase 51 U/L (14-36); Bilirubin,Total 0.4 mg/dl (0.2-1.3); Blood Urea Nitrogen 19 mg/dl (7-17); Carbon Dioxide 25 mmol/L (22.0-30.0); Creatinine Clearance Estimated 169 mL/min (50-200); Estimated Glomerular Filt Rate 96 ml/min (>60); GFR (African American) 117 ML/MIN (>60); Globulin 3.5 g/dL (1.3-3.2); Total Protein,Serum 8.1 g/dl (6.3-8.2)
[2024-07-14 19:44] LABS: Calcium 9.1 mg/dl (8.4-10.2); Glucose 92 mg/dl (74-100); Lipase 88 U/L (23-300); Magnesium 1.6 mg/dl (1.6-2.3)
[2024-07-14] MEDS: droPERidol 5MG/2ML VIAL 2.5 MG IV (20:01)
[2024-07-14 20:07] LABS: HCG,Quantitative < 2 mIU/ml (0-5.42)
--- NOTE | 2024-07-14 20:08 | PC.NURSE ---
As per the MAR administered 25mg of promethazine diluted in 25mL of NS. Also, administered 1L of LR and 2.5mg of droperidol. EKG documented prior to administration.
[2024-07-14 20:17] LABS: Basophils % 0.5 % (0.1-2.0); Hematocrit 42.9 % (37.0-47.0); Lymphocytes # 1.4 K/mm3 (0.7-4.5); Lymphocytes % 16.5 % (10-50); Mean Corpuscular HGB Conc 32.6 g/dL (31.8-35.4); Mean Corpuscular Hemoglobin 30.1 pg (27.0-31.2); Mean Corpuscular Volume 92.3 fl (81-99); Mean Platelet Volume 10.2 fl (7.4-10.4); Monocytes # 0.6 K/mm3 (0.1-1.0); Monocytes % 6.6 % (1.7-9.3); Neutrophils # 6.3 K/mm3 (1.8-7.8); Platelet Count 270 K/mm3 (142-424); Red Blood Count 4.65 M/mm3 (4.20-5.40); Red Cell Distribution Width 12.9 % (11.5-17.5); White Blood Count 8.4 K/mm3 (4.8-10.8)
--- NOTE | 2024-07-14 20:22 | XR_ITS ---
PROCEDURE INFORMATION: Exam: XR Chest Exam date and time: 07/14/2024 8:49 PM Age: 34 years old Clinical indication: Shortness of breath; Additional info: SOA couygh hypox TECHNIQUE: Imaging protocol: Radiologic exam of the chest. Views: 1 view. COMPARISON: No relevant prior studies available. FINDINGS: Lungs: Subtle left basilar subsegmental opacity. Pleural spaces: Unremarkable. No pleural effusion. No pneumothorax. Heart/Mediastinum: Unremarkable. No cardiomegaly. Bones/joints: Unremarkable. IMPRESSION: Left basilar subsegmental atelectasis/infiltration.
[2024-07-14 20:40] LABS: D-Dimer 0.63 ug/mL (0.0-0.5)
[2024-07-14 21:40] LABS: HIV Combo NEGATIVE (Negative)
--- NOTE | 2024-07-14 21:59 | CT_ITS ---
PROCEDURE INFORMATION: Exam: CTA Chest With Contrast Exam date and time: 07/14/2024 10:15 PM Age: 34 years old Clinical indication: Shortness of breath; Additional info: SOA, hypoxemia, dimer and tachy TECHNIQUE: Imaging protocol: Computed tomographic angiography of the chest with contrast. Exam focused on the arteries. 3D rendering (Not supervised by radiologist): MIP and/or 3D reconstructed images were created by the technologist. Radiation optimization: All CT scans at this facility use at least one of these dose optimization techniques: automated exposure control; mA and/or kV adjustment per patient size (includes targeted exams where dose is matched to clinical indication); or iterative reconstruction. Contrast material: ISOVUE; Contrast volume: 70 ml; Contrast route: INTRAVENOUS (IV); COMPARISON: CR XR CHEST PORTABLE 07/14/2024 8:49 PM FINDINGS: Pulmonary arteries: Normal. No pulmonary emboli. Aorta: Unremarkable. No aortic aneurysm. No aortic dissection. Lungs: Bilateral infrahilar/lower lung zone and peripheral opacities. Pleural spaces: Unremarkable. No pneumothorax. No pleural effusion. Heart: Unremarkable. No cardiomegaly. No pericardial effusion. Lymph nodes: Unremarkable. No enlarged lymph nodes. Bones/joints: Unremarkable. No acute fracture. Soft tissues: Unremarkable. IMPRESSION: 1. No central or segmental pulmonary arterial embolism identified. 2. Bilateral infiltration including from COVID pneumonia.
--- NOTE | 2024-07-14 22:09 | PC.NURSE ---
radiology taking pt at this time
[2024-07-14 22:10] LABS: VBG HCO3 20.8 mmol/L (23-30); VBG Oxygen Saturation 91.3 % (50-70); VBG PCO2 29.8 mmol/L (35-51); VBG PH 7.46 mmol/L (7.31-7.41); VBG PO2 55.6 mmol/L (28-40); VBG Total CO2 21.7 mmol/L (23-27)
[2024-07-14 22:12] LABS: Lactate Venous 3.4 mmol/L (0.4-2.0)
[2024-07-14] MEDS: SODIUM CHLORIDE 0.9% 10ML SYR (RAD ONLY) 10 ML IV (22:22)
[2024-07-14] MEDS: IOPAMIDOL-370 (76%);100ML BOTTLE 70 ML IV (22:23)
[2024-07-14] MEDS: 0.9 % SODIUM CHLORIDE 50 ML VIAL IV (22:23)
[2024-07-14] MEDS: CEFTRIAXONE SODIUM 2 GM in 0.9 % SODIUM CHLORIDE 100 ML IV (22:24)
[2024-07-14] MEDS: DEXAMETHASONE 4MG/ML 1ML VIAL 10 MG IV (22:58)
[2024-07-14 23:10] VITALS: BP 106/66; PULSE 108; RESP 18; TEMP 36.7; O2SAT 94
[2024-07-16 06:10] LABS: HCV Ab Non Reactive (Non Reactive)
== END 2024-07-14 23:21 | disposition home or self-care (01) ==
PROVIDERS: Physician Assistant; Emergency Provider Emergency Medicine; PCP Nurse Practitioner Family
DX: R09.02 Hypoxemia (principal); J18.9 Pneumonia, unspecified organism; R11.2 Nausea with vomiting, unspecified; R50.9 Fever, unspecified; R07.89 Other chest pain
CPT/HCPCS: 71045; 71275; 80053; 82803; 83690; 83735; 84702; 85025; 85378; 86803; 87389; 93005; 96361; 96374; 96375; 99285; J0696; J1100; J1790; J2550; J7120; Q9967

== ENCOUNTER 2025-06-28 12:48 | Outpatient (CLI) | payer BC, SELFPAY ==
--- OUTSIDE RECORDS SUMMARY | 2025-05-24 14:20 | XMS_ITS | Encounter Summary ---
Author Organization [facility] Address [address] [place] [address] Care Team Providers Care Produce Team Lead Name Role Phone Reyna Garibay APRN Primary Care Provider [phone] Reason for Visit * Reason Comments Sinusitis Encounter Details Date Type Department Care Team (Late st Contact Info) Description 05/24/2025 2:20 PM EST Office Visit [facility] [address] [place] [address] Reyna Garibay APRN [address] [place] [address] Non-recurrent acute serous otitis media of right ear (Primary Dx); Pharyngitis, unspecified etiology Social History Tobacco Use Types Packs/Day Years Used Date Smoking Tobacco: Never Passive Smoke Exposure: Never Smokeless Tobacco: Never Alcohol Use Standard Drinks/Week Comments Never 0 (1 standard drink = 0.6 oz pur e alcohol) PHQ-2 Answer Date Recorded Patient Health Questionnaire-2 Score 2 05/24/2025 PHQ-9 Answer Date Recorded Patient Health Questionnaire-9 Score 9 05/24/2025 Humiliation, Afraid, Rape, and Kick questionnair e Answer Date Recorded Within the last year, have y ou been afraid of your partner or ex-partner? No 05/24/2025 Within the last year, have y ou been humiliated or emotionally abused in other ways by your partner or ex-partner? No Within the last year, have y ou been kicked, hit, slapped, or otherwise physically hurt by your partner or ex-partner? No 05/24/2025 Within the last year, have y ou been raped or forced to have any kind of sexual activity by your partner or ex-partner? No 05/24/2025 Hunger Vital Sign Answer Date Recorded Within the past 12 months, y ou worried that your food would run out before you got the money to buy more. Never true 05/24/20 25 Within the past 12 months, t he food you bought just didn't last and you didn't have money to get more. Never true 05/24/2025 PRAPARE - Transportation Answer Date Re corded In the past 12 months, has l ack of transportation kept you from medical appointments or from getting medications? No 05/13 In the past 12 months, has l ack of transportation kept you from meetings, work, or from getting things needed for daily living? No 05/24/2025 Housing Stability Vital Sign Answer Manish e Recorded In the last 12 months, was t here a time when you were not able to pay the mortgage or rent on time? No 05/24/2025 In the past 12 months, how m any times have you moved where you were living? 0 05/24/2025 At any time in the past 12 m [facility], were you homeless or living in a prison (including now)? No 05/24/2025 [facility] Utilities Answer Date Recorded In the past 12 months has th e electric, gas, oil, or water company threatened to shut off services in your home? No 05/24/2025 PHQ-2A Answer Date Recorded Patient Health Questionnaire-2 Score 0 04/24/2023 Comments Unknown Sex and Gender Information Value Date Recorded Sex Assigned at Female 05/26/2021 8:21 PM EST Legal Sex Female 6:04 PM EDT Gender Identity Female 05/26/2021 8:21 PM EST Sexual Orientation Straight 05/26/2021 8: 21 PM EST documented as of this encounter Last Filed Vital Signs Vital Sign Reading Time Taken Comments Blood Pressure 110/70 05/24/2025 2:33 PM EST Pulse 94 05/24/2025 2:33 PM EST Temperature 36.4 C (97.6 F) 05/24/2025 2:33 PM EST Respiratory Rate 16 05/24/2025 2:33 PM EST Oxygen Saturation 98% 05/24/2025 2:33 PM EST Inhaled Oxygen Concentration - - Weight 95.8 kg (211 lb 3.2 oz) 05/24/2025 2:33 P M EST Height 167.6 cm (5' 6 ) 05/24/2025 2:33 PM EST Body Mass Index 34.09 05/24/2025 2:33 PM EST documented in this encounter Functional Status * Over the past 2 weeks, how often have you been bothered by any of the following problems? Question Answer Date of Assessment Author Little interest or pleasure in doing things Several days 05/24/2025 2:34 PM EST Janessa Hayes Feeling down, depressed, or hopeless Several days 05/24/2025 2:34 PM Janessa Giron Patient Health Questionnaire -2 Score 2 05/24/2025 2:34 PM Janessa Giron * Question Answer Date of Assessment Author Trouble falling or staying asleep, or sleeping too much More than half the days 05/24/2025 2:34 PM Janessa Giron Feeling tired or having little energy More than half the days 05/24/2025 2:34 PM Janessa Giron Poor appetite or overeating Not at all 05/24/2025 2: 34 PM Janessa Giron Feeling bad about yourself - or that you are a failure or have let yourself or your family down Several days 05/24/2025 2:34 PM Janessa Giron Trouble concentrating on things, such as reading the newspaper or watching television More than half the days 05/24/2025 2:34 PM Janessa Giron Moving or speaking so slowly that other people could have noticed. Or the opposite - being so fidgety or restless that you have been moving around a lot more than usual Not at all 05/24/2025 2:34 PM Janessa Giron Thoughts that you would be better off or hurting yourself in some way Not at all 05/24/2025 2:34 PM Janessa Giron Patient Health Questionnaire-9 Score 9 05/24/2025 2:34 PM Janessa Giron * Calculated C-SSRS Risk Score (Lifetime/Recent) Answer Date of Assessment Author No Risk Indicated 05/24/2025 2:36 PM EST Janessa Davison * How difficult have these problems made it for you to do your work, take care of things at home, or get along with other people? Answer Date of Assessment Author Somewhat difficult 05/24/2025 2:34 PM EST Janessa Price * Question Answer Date of Assessment Author 1. Wish to be (Past 1 Month) No 025 2:36 PM Janessa Giron 2. Non-Specific Active Suici maylin Thoughts (Past 1 Month) No 05/24/2025 2:36 PM EST Janessa Hayes 6. Suicidal Behavior (Lifetime) No 2:36 PM Janessa Giron documented as of this encounter Miscellaneous Notes * Progress Notes - Reyna Garibay, OLGA LIDIA - 05/24/2025 2:20 PM EST Office Progress Note Subjective Shaneka Vera is a 35 y.o. female who presents for Sinusitis. History of Present Illness The patient presents for evaluation of a sore throat. She experienced a persistent headache for 3 to 4 consecutive days, which has since subsided. However, she is now suffering from severe throat pain accompanied by congestion and ear discomfort. She reports frequent coughing and an unusually dry mouth. Despite these symptoms, she does not believe shehas a fever or chills. It is noteworthy that her children have been exhibiting signs of illness at home. She is currently and reports no known allergies to antibiotics. The following sections have been reviewed and updated during this encounter: Tobacco Allergies Meds Objective Blood pressure 110/70, pulse 94, temperature 36.4 ??C (97.6 ??F), temperature source Oral, resp. rate 16, height 1.676 m (5' 6 ), weight 95.8 kg (211 lb 3.2 oz), SpO2 98%. Body mass index is 34.09 kg/m??. Physical Exam Vitals reviewed. Constitutional: Appearance: She is obese. HENT: Ears: Comments: Both tms erythemtous right greater then left Nose: Congestion present. Mouth/Throat: Mouth: Mucous membranes are moist. Pharynx: Posterior oropharyngeal erythema present. Cardiovascular: Rate and Rhythm: Normal rate and regular rhythm. Pulses: Normal pulses. Heart sounds: Normal heart sounds. Pulmonary: Effort: Pulmonary effort is normal. Breath sounds: Normal breath sounds. Neurological: General: No focal deficit present. Mental Status: She is alert and oriented to person, place, and time. Psychiatric: Mood and Affect: Mood normal. Behavior: Behavior normal. Thought Content: Thought content normal. Judgment: Judgment normal. Assessment/Plan Diagnoses and all orders for this visit: Non-recurrent acute serous otitis media of right ear - cephalexin (Keflex) 500 MG capsule; Take 2 capsules by mouth 2 times a day for 10 days. Pharyngitis, unspecified etiology - predniSONE (Deltasone) 20 MG tablet; Take 1 tablet by mouth daily for 7 days. Assessment & Plan 1. Pharyngitis: - Reports a sore throat with significant pain, earache, and dry mouth, which has persisted for several days. No fever or chills. - Throat appears significantly inflamed, and ears are red. - Keflex prescribed to cover potential streptococcal infection and sinusitis. Prednisone prescribedto reduce inflammation and alleviate pain. Medication sent to pharmacy. Verbal consent was obtained to use ambient listening technology to assist in the documentation of the encounter: yes documented in this encounter Plan of Treatment Not on file documented as of this encounter Visit Diagnoses Diagnosis Non-recurrent acute serous otitis media of right ear- Primary Pharyngitis, unspecified etiology documented in this encounter Additional Health Concerns Assessment Noted Time PHQ-9 Depression Total Score: 9 05/24/20 25 2:34 PM EST A fall risk assessment has been complete d for the patient 06/20/2022 2:07 PM EST A Body Mass Index follow-up plan has been documented for the patient 05/24/2025 2:53 PM EST documented as of this encounter Care Teams Produce Team Lead Relationship Specialty Start Date End Date Reyna Garibay APRN [address] [place] [address] PCP - General 11/23/20 documented as of this encounter
--- OUTSIDE RECORDS SUMMARY | 2025-06-05 13:00 | XMS_ITS | Encounter Summary ---
Author Organization [facility] Address [address] [place] [address] Care Team Providers Care Auto Body Repairer Name Role Phone Reyna Garibay APRN Primary Care Provider [phone] Reason for Visit * Reason Comments Earache Sore Throat Encounter Details Date Type Department Care Team (Late st Contact Info) Description 06/05/2025 1:00 PM EST Office Visit [facility] [address] [place] [address] Constanza Guzman APRN, DNP [address] [place] [address] Non-recurrent acute serous otitis media of right ear (Primary Dx); Pharyngitis, unspecified etiology Social History Tobacco Use Types Packs/Day Years Used Date Smoking Tobacco: Never Passive Smoke Exposure: Never Smokeless Tobacco: Never Alcohol Use Standard Drinks/Week Comments Never 0 (1 standard drink = 0.6 oz pur e alcohol) PHQ-2 Answer Date Recorded Patient Health Questionnaire-2 Score 2 06/05/2025 PHQ-9 Answer Date Recorded Patient Health Questionnaire-9 Score 9 06/05/2025 Humiliation, Afraid, Rape, and Kick questionnair e Answer Date Recorded Within the last year, have y ou been afraid of your partner or ex-partner? No 06/05/2025 Within the last year, have y ou been humiliated or emotionally abused in other ways by your partner or ex-partner? No Within the last year, have y ou been kicked, hit, slapped, or otherwise physically hurt by your partner or ex-partner? No 06/05/2025 Within the last year, have y ou been raped or forced to have any kind of sexual activity by your partner or ex-partner? No 06/05/2025 Hunger Vital Sign Answer Date Recorded Within the past 12 months, y ou worried that your food would run out before you got the money to buy more. Never true 06/05/20 25 Within the past 12 months, t he food you bought just didn't last and you didn't have money to get more. Never true 06/05/2025 PRAPARE - Transportation Answer Date Re corded In the past 12 months, has l ack of transportation kept you from medical appointments or from getting medications? No 05/14 In the past 12 months, has l ack of transportation kept you from meetings, work, or from getting things needed for daily living? No 06/05/2025 Housing Stability Vital Sign Answer Manish e Recorded In the last 12 months, was t here a time when you were not able to pay the mortgage or rent on time? No 06/05/2025 In the past 12 months, how m any times have you moved where you were living? 0 06/05/2025 At any time in the past 12 m [facility], were you homeless or living in a nursing home (including now)? No 06/05/2025 [facility] Utilities Answer Date Recorded In the past 12 months has th e electric, gas, oil, or water company threatened to shut off services in your home? No 06/05/2025 PHQ-2A Answer Date Recorded Patient Health Questionnaire-2 [...] Sign Reading Time Taken Comments Blood Pressure 118/74 06/05/2025 12:57 PM EST Pulse 86 06/05/2025 12:57 PM EST Temperature 36.8 C (98.2 F) 06/05/2025 12:57 PM EST Respiratory Rate 16 06/05/2025 12:57 PM EST Oxygen Saturation 97% 06/05/2025 12:57 PM EST Inhaled Oxygen Concentration - - Weight 95.3 kg (210 lb 1.6 oz) 06/05/2025 12:57 PM EST Height 167.6 cm (5' 6 ) 06/05/2025 12:57 PM EST Body Mass Index 33.91 06/05/2025 12:57 PM EST documented in this encounter Functional Status * Over the past 2 weeks, how often have you been bothered by any of the following problems? Question Answer Date of Assessment Author Little interest or pleasure in doing things Several days 06/05/2025 12:58 PM Janessa Giron Feeling down, depressed, or hopeless Several days 06/05/2025 12:58 PM Janessa Giron Patient Health Questionnaire -2 Score 2 06/05/2025 12:58 PM Janessa Giron * Question Answer Date of Assessment Author Trouble falling or staying asleep, or sleeping too much More than half the days 06/05/2025 12:58 PM Janessa Giron Feeling tired or having little energy More than half the days 06/05/2025 12:58 PM Janessa Giron Poor appetite or overeating Not at all 06/05/2025 12 :58 PM Janessa Giron Feeling bad about yourself - or that you are a failure or have let yourself or your family down Several days 06/05/2025 12:58 PM Janessa Giron Trouble concentrating on things, such as reading the newspaper or watching television More than half the days 06/05/2025 12:58 PM Janessa Giron Moving or speaking so slowly that other people could have noticed. Or the opposite - being so fidgety or restless that you have been moving around a lot more than usual Not at all 06/05/2025 12:58 PM Janessa Giron Thoughts that you would be better off or hurting yourself in some way Not at all 06/05/2025 12:58 PM Janessa Giron Patient Health Questionnaire-9 Score 9 06/05/2025 12:58 PM Janessa Giron * Calculated C-SSRS Risk Score (Lifetime/Recent) Answer Date of Assessment Author No Risk Indicated 06/05/2025 12:57 PM EST Janessa Price * How difficult have these problems made it for you to do your work, take care of things at home, or get along with other people? Answer Date of Assessment Author Somewhat difficult 06/05/2025 12:58 PM EST Janessa Colbert * Question Answer Date of Assessment Author 1. Wish to be (Past 1 Month) No 025 12:57 PM EST Janessa Hayes 2. Non-Specific Active Suici maylin Thoughts (Past 1 Month) No 06/05/2025 12:57 PM EST Janessa Hayes 6. Suicidal Behavior (Lifetime) No 12:57 PM EST Janessa Hayes documented as of this encounter Miscellaneous Notes * Progress Notes - Constanza Guzman, MEDICAL TECHNOLOGIST HEMATOLOGY, DNP - 06/05/2025 1:00 PM EST Subjective Shaneka Dana Blanchard Earache Associated symptoms include a sore throat. Sore Throat Associated symptoms include ear pain. History of Present Illness The patient presents for evaluation of a sore throat. She initially sought medical attention two Wednesdays ago due to a severe sore throat and ear pain.Antibiotics were prescribed, which have since resolved her cough. However, she continues to experience significant throat pain, particularly in specific areas, causing discomfort in her ears and difficulty swallowing. She reports no fever but has experienced drainage. Symptoms improved slightly while on prednisone but did not resolve completely. She describes the sensation as a painful lump. There is no nausea, vomiting, or diarrhea. Her cough has improved, and she reports no wheezing or shortness of breath. She has not been swimming or had water exposure to her ears. She is currently and has noticed a decrease in milk production. She has attempted to alleviate her symptoms with Chloraseptic lozenges, but these have not been effective. Pain management has included 600 mg of ibuprofen. Medical/Surgical/Social/Family History Past Medical History[1] Surgical History[2] Social History[3] Family History[4] Allergies Patient has no known allergies. Immunizations VACCINE / DOSE DATE DATE DATE DATE DATE Flu 04/24/2016 05/07/2018 03/23/2019 05/25/2020 05/23/2022 Tetanus 09/12/2019 03/11/2024 Pneumovax Shingles Medications Ordered Prior to Encounter[5] Allergies Patient has no known allergies. Health Maintenance Due Topic Date Due ??? [facility]-Varicella Vaccines (1 of 2 - 13+ 2-dose series) Never done ??? [facility]-Hepatitis B Vaccines (1 of 3 - 19+ 3-dose series) Never done ??? [facility]-Pneumococcal Vaccine: Pediatrics (0 to 5 Years) and At-Risk Patients (6 to 49 Years) (1 of 2 - PCV) Never done ??? HPV Vaccines (1 - 3-dose SCDM series) Never done ??? [facility]-Cervical Cancer Screening Never done ??? [facility]-Influenza Vaccine (1) 03/13/2025 ??? [id number]-01 Vaccine ( - 2024- season) Never done All medications have been reviewed today. The following portions of the patient's chart were reviewed in this encounter and updated as appropriate: past medical history, surgical history, family history, tobacco history, allergies, and medications A 14-point review of systems was completed with pertinent positives and negatives outlined above. Objective Vitals: 06/05/25 1257 BP: 118/74 Pulse: 86 Resp: 16 Temp: 36.8 ??C (98.2 ??F) SpO2: 97% Physical Exam Vitals reviewed. Constitutional: Appearance: She is obese. HENT: Right Ear: Tympanic membrane is erythematous. Left Ear: Tympanic membrane is erythematous. Ears: Comments: Both tms erythemtous right greater [...] Content: Thought content normal. Judgment: Judgment normal. Physical Exam Ears: Significant fluid in both ears, with the right ear appearing more erythematous than the left. Mouth/Throat: Throat is erythematous and swollen. Neck: Lymphadenopathy is present. Respiratory: Clear to auscultation, no wheezing, rales or rhonchi Results Assessment/Plan Problem List Items Addressed This Visit None Visit Diagnoses Non-recurrent acute serous otitis media of right ear - Primary Relevant Medications amoxicillin-clavulanate (Augmentin) 875-125 MG tablet methylPREDNISolone (Medrol Dospak) 4 MG tablets Pharyngitis, unspecified etiology Relevant Medications amoxicillin-clavulanate (Augmentin) 875-125 MG tablet methylPREDNISolone (Medrol Dospak) 4 MG tablets Assessment & Plan 1. Pharyngitis: Persistent. - Persistent throat pain and earache despite previous antibiotic treatment. No fever, nausea, vomiting, or diarrhea reported. Cough has improved. Significant erythema in the throat and fluid in the ears, with the right ear being more erythematous than the left. Lymph nodes are swollen. - Prescribe a steroid pack to reduce inflammation. - Prescribe a stronger antibiotic. - Advise adequate hydration. - Recommend using a humidifier. - Recommend gargling with salt water. - Recommend using throat lozenges for symptomatic relief. Follow-up - Inform the clinic if there is no improvement. Constanza Guzman, OLGA LIDIA, DNP Verbal consent was obtained to use ambient listening technology to assist in the documentation of the encounter: yes [1] Past Medical History: Diagnosis Date ??? depression [2] Past Surgical History: Procedure Laterality Date ??? COLONOSCOPY ??? ENDOSCOPY [3] Social History Tobacco Use ??? Smoking status: Never Passive exposure: Never ??? Smokeless tobacco: Never Vaping Use ??? Vaping status: Never Used Substance Use Topics ??? Alcohol use: Never ??? Drug use: Never [4] Family History Problem Relation Name Age of Onset ??? Asthma Mother ??? Asthma Maternal Grandfather ??? Hypertension Mother ??? Hypertension Father ??? Colon cancer Other ??? Conversions - Other Other malignant neoplasm of ovary ??? Thyroid disease Mother [5] Current Outpatient Medications on File Prior to Visit Medication Sig Dispense Refill ??? albuterol (ProAir HFA) 108 (90 Base) MCG/ACT inhaler Inhale 2 puffs every 6 (six) hours if needed for wheezing or shortness of breath (cough, wheezing, shortness of breath) for up to 7 days. 25.5g 0 ??? albuterol (Proventil) (2.5 MG/3ML) 0.083% nebulizer solution USE DIRECTED 4 TIMES A DAY NEEDED 900 mL 0 ??? buPROPion XL (Wellbutrin XL) 150 MG 24 hr tablet Take 1 tablet (150 mg) by mouth 1 (one) time each day in the morning. ??? cetirizine (ZyrTEC) 10 MG tablet TAKE 1 TABLET BY MOUTH 1 TIME EACH DAY 90 tablet 2 ??? escitalopram (Lexapro) 20 MG tablet Take 1 tablet (20 mg) by mouth 1 (one) time each day. ??? Sdrvyekjlmb-Owjsksnmy-Cihbnm (Trelegy Ellipta) 200-62.5-25 MCG/ACT aerosol powder INHALE 1 PUFFONCE DAILY ??? calcium carbonate (Tums) 500 MG chewable tablet Chew 2 tablets (1,000 mg) 2 (two) times a day. (Patient not taking: Reported on 08/18/2024) ??? [] cephalexin (Keflex) 500 MG capsule Take 2 capsules by mouth 2 times a day for 10 days. (Patient not taking: Reported on 06/05/2025) 40 capsule 0 ??? [] predniSONE (Deltasone) 20 MG tablet Take 1 tablet by mouth daily for 7 days. (Patientnot taking: Reported on 06/05/2025) 7 tablet 0 ??? [DISCONTINUED] montelukast (Singulair) 10 MG tablet Take 1 tablet (10 mg) by mouth every night.(Patient not taking: Reported on 06/05/2025) No current facility-administered medications on file prior to visit. documented in this encounter Plan of Treatment Not on file documented as of this encounter Visit Diagnoses Diagnosis Non-recurrent acute serous otitis media of right ear- Primary Pharyngitis, unspecified etiology documented in this encounter Additional Health Concerns Assessment Noted Time PHQ-9 Depression Total Score: 9 06/05/20 25 12:58 PM EST A fall risk assessment has been complete d for the patient 06/20/2022 2:07 PM EST A Body Mass Index follow-up plan has been documented for the patient 06/05/2025 1:19 PM EST documented as of this encounter Care Teams Auto Body Repairer Relationship Specialty Start Date End Date Reyna Garibay, MEDICAL TECHNOLOGIST HEMATOLOGY [address] [place] [address] PCP - General 11/23/20 documented as of this encounter
--- NOTE | 2025-06-28 13:00 | US_ITS ---
PROCEDURE: US TRANSVAGINAL CLINICAL INDICATION: AUB COMPARISON: No exams were available for comparison FINDINGS: Transvaginal sonographic images of the pelvis were obtained. UTERUS: 8.6 cm x 6.4cmx 4.5cm anteverted with a combined endometrial thickness of 13.5mm. The endometrium is trilaminar. There is a small hyperechoic area in the anterior endometrium measuring approximately 1 millimeter in size. Fibroid 1. 1.1 cm x 0.9 cm x 1.2 cm that appears calcified. LEFT OVARY: 3.3cmThere is a follicle measuring 2.1 cm x 2.5 cm x 1.8 cm. There is a 2nd small follicle measuring 0.9 cm in size. RIGHT OVARY: 2.3cmx 2.5cmx1.7 cm with a volume of 5.1ml. There are multiple small peripheral follicles. Both ovaries are seen and appear normal. Doppler flow to both ovaries are seen. There is no fluid in the cul-de-sac. IMPRESSION: 1. Anteverted uterus normal in shape and size. The endometrium is 13.5 mm and trilaminar. There is a small echogenic foci in the anterior myometrium. 2. There is a posterior fibroid measuring 1.2 cm in size. 3. Both ovaries are seen and appear normal. The left ovary has a dominant follicle measuring 2.5 cm. There are multiple small peripheral follicles in the right ovary. 4. No fluid in the cul-de-sac. Dictated by: Carson Walker MD 06/28/2025 16:08 Carson Walker MD in OV 06/28/2025 16:08
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
--- OUTSIDE RECORDS SUMMARY | 2025-06-28 13:38 | XMS_ITS | Encounter Summary ---
Author Organization Healthcare Address [address] [place] [address] Care Team Providers Care General Internal Medicine Physician Name Role Phone Reyna Garibay APRN Primary Care Provider [phone] Encounter Details Date Type Department Care Team (Late st Contact Info) Description 03/05/2023 Outside Procedure External Location [address] [place] [address] Provider, [facility] Social History Tobacco Use Types Packs/Day Years Used Date Smoking Tobacco: Never Smokeless Tobacco: Never Alcohol Use Standard Drinks/Week Comments Never 0 (1 standard drink = 0.6 oz pur e alcohol) PHQ-2 Answer Date Recorded Patient Health Questionnaire-2 Score 0 12/22/2022 Comments Unknown Sex and Gender Information Value Date Recorded Sex Assigned at Female 05/26/2021 8:21 PM EST Legal Sex Female 6:04 PM EDT Gender Identity Female 05/26/2021 8:21 PM EST Sexual Orientation Straight 05/26/2021 8: 21 PM EST documented as of this encounter Plan of Treatment Not on file documented as of this encounter Procedures Procedure Name Priority Date/Time Associated Diagnosis Comments XR CHEST 1 VIEW 03/05/2023 7:12 AM EDT documented in this encounter Results * XR Chest 1 View (03/05/2023 7:12 AM EDT) Anatomical Region Laterality Modality Chest Digital Radiogra phy 03/05/2023 7:12 AM EDT Narrative 03/05/2023 7:40 AM EDT [address] [address] Name: SHANEKA GRAF Exam Date: 03/05/2023 : 1990 Age 32 Gender: F Physician: SAM MOCTEZUMA Facility: [facility] Facility HSV: Outpatient Exam: CHEST PORTABLE CHEST, 1 view HISTORY: Shortness of breath. COMPARISON: June 09, 2022. FINDINGS: The lungs are clear. There is no evidence of effusion or other pleural disease. The mediastinum has a normal appearance. The cardiac silhouette is unremarkable. No acute osseous changes. IMPRESSION: No acute cardiopulmonary process. Dictated By: JULIENNE MORTON Transcribed By: Julienne Morton Transcribed On: 03/05/2023 7:28 AM Electronically signed by: JULIENNE MORTON 03/05/2023 Thank you for referring SHANEKA GRAF to [facility]. Legally authenticated by POPE JULIENNE Golden 2023-03-05 07:28:39 Procedure Note Provider, [facility] - 03/05/2023 [place] [address] Name: SHANEKA GRAF Exam Date: 03/05/2023 : 1990 Age 32 Gender: F Physician: SAM MOCTEZUMA Facility: [facility] Facility HSV: Outpatient Exam: CHEST PORTABLE CHEST, 1 view HISTORY: Shortness of breath. COMPARISON: June 09, 2022. FINDINGS: The lungs are clear. There is no evidence of effusion or other pleural disease. The mediastinumhas a normal appearance. The cardiac silhouette is unremarkable. No acute osseous changes. IMPRESSION: No acute cardiopulmonary process. Dictated By: JULIENNE MORTON Transcribed By: Julienne Morton Transcribed On: 03/05/2023 7:28 AM Electronically signed by: JULIENNE MORTON 03/05/2023 Thank you for referring SHANEKA GRAF to [facility]. Legally authenticated by POPE JULIENNE Golden 2023-03-05 07:28:39 Generic [place] Provider IMG XR PROCEDURES Fi nal Result documented in this encounter Visit Diagnoses Not on filedocumented in this encounter Additional Health Concerns Infection Onset Date Last Indicated Resolved Time COVID-19 Rule-Out 05/06/2024 05/06/2024 05/06/2024 10:15 AM EDT Respiratory Rule-Out 05/06/2024 05/06/2024 024 4:47 PM EDT Rhinovirus 05/06/2024 05/06/2024 08/18/2024 12:3 6 PM EST Assessment Noted Time A fall risk assessment has been complete d for the patient 06/20/2022 2:07 PM EST A Body Mass Index follow-up plan has been documented for the patient 12/22/2022 11:52 AM EDT documented as of this encounter Care Teams General Internal Medicine Physician Relationship Specialty Start Date End Date Reyna Garibay APRN [address] [place] [address] PCP - General 11/23/20 documented as of this encounter
[2025-06-28 13:40] LABS: Hematocrit 41.1 % (37.0-47.0); Hemoglobin 13.5 g/dL (12.2-16.2); Immature Granulocytes % 0.1 %; Mean Corpuscular HGB Conc 32.8 g/dL (31.8-35.4); Mean Corpuscular Hemoglobin 31.0 pg (27.0-31.2); Mean Corpuscular Volume 94.5 fl (81-99); Nucleated Red Blood Cells % 0 %; Platelet Count 338 K/mm3 (142-424); Red Blood Count 4.35 M/mm3 (4.20-5.40); Red Cell Distribution Width-SD 43.1 fL; White Blood Count 7.8 K/mm3 (4.8-10.8)
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
--- OUTSIDE RECORDS SUMMARY | 2025-06-28 13:41 | XMS_ITS | Clinical Summary ---
Author Organization Healthcare Address [address] [place] [address] Care Team Providers Care Cage Shift Manager Name Role Phone Reyna Garibay APRN Primary Care Provider [phone] Allergies No known active allergies Medications calcium carbonate (Tums) 500 MG chewable tablet Chew 2 tablets (1,000 mg) 2 (two) times a day. Active albuterol (ProAir HFA) 108 (90 Base) MCG/ACT inhalerIndicati ons:Mild intermittent asthma with (acute) exacerbation Inhale 2 puffs every 6 (six) hours if needed for wheezing or shortness of breath (cough, wheezing, shortness of breath) for up to 7 days. 25.5 g 03/10/20 23 Active Fluticasone-Ume clidin-Vilant (Trelegy Ellipta) 200-62.5-25 MCG/ACT aerosol powder INHALE 1 PUFF ONCE DAILY Active escitalopram (Lexapro) 20 MG tablet Take 1 tablet (20 mg) by mouth 1 (one) time each day. 09/18/19 24 Active cetirizine (ZyrTEC) 10 MG tabletIndicatio ns:Acute bronchitis, unspecified organism,Acute sinusitis with symptoms greater than 10 days TAKE 1 TABLET BY MOUTH 1 TIME EACH DAY 90 tablet 2 01/12/20 24 Active buPROPion XL (Wellbutrin XL) 150 MG 24 hr tablet Take 1 tablet (150 mg) by mouth 1 (one) time each day in the morning. 03/01/20 24 Active albuterol (Proventil) (2.5 MG/3ML) 0.083% nebulizer solutionIndicat ions:Acute bronchitis, unspecified organism USE DIRECTED 4 TIMES A DAY NEEDED 900 mL 05/06/20 Active methylPREDNISol one (Medrol Dospak) 4 MG tabletsIndicati ons:Non-recurre nt acute serous otitis media of right ear,Pharyngitis , unspecified etiology Take as directed on package. 21 tablet 06/05/20 Active montelukast (Singulair) 10 MG tablet Take 1 tablet (10 mg) by mouth every night. 025 Discontinued cephalexin (Keflex) 500 MG capsuleIndicati ons:Non-recurre nt acute serous otitis media of right ear Take 2 capsules by mouth 2 times a day for 10 days. 40 capsule 05/24/20 025 Additional Information Patient not taking.Reported on 06/05/2025 predniSONE (Deltasone) 20 MG tabletIndicatio ns:Pharyngitis, unspecified etiology Take 1 tablet by mouth daily for 7 days. 7 tablet 05/24/20 025 Additional Information Patient not taking.Reported on 06/05/2025 amoxicillin-cla vulanate (Augmentin) 875-125 MG tabletIndicatio ns:Non-recurren t acute serous otitis media of right ear,Pharyngitis , unspecified etiology Take 1 tablet by mouth 2 times a day for 10 days. 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 05/02/2022 KINGSLEY positive 09/18/2021 History of asthma 09/18/2021 Mouth sores 09/18/2021 Vaginal dryness 09/18/2021 Anxiety 03/16/2020 Seasonal allergies 10/30/2017 Asthma 10/07/2014 Eosinophilic esophagitis 04/21/2013 Resolved Problems Problem Noted Date Diagnosed Date Resolved Date High risk medication use 05/02/2022 Encounters Date Type Department Care Team Description 06/05/2025 1:00 PM EST Office Visit [facility] [address] [place] [address] Constanza Guzman, SAVE ALL OPERATOR, DNP Non-recurrent acute serous otitis media of right ear (Primary Dx); Pharyngitis, unspecified etiology 06/05/2025 Travel 05/24/2025 2:20 PM EST Office Visit [facility] [address] [place] [address] Reyna Garibay APRN Non-recurrent acute serous otitis media of right ear (Primary Dx); Pharyngitis, unspecified etiology 05/24/2025 Travel from Last 3 Months Immunizations Immunization Administration Dates Next Due Influenza, injectable, quadr ivalent, preservative free 05/23/2022,05/25/2020,05/07/2018,2015 Influenza, seasonal, injectable 03/23/2019 Tdap 03/11/2024,09/12/2019 Family History Medical History Relation Name Comments Hypertension Father Asthma Maternal Grandfather Asthma Mother Hypertension Mother Thyroid disease Mother Colon cancer Other 1 Conversions - Other Other 2 malignan t neoplasm of ovary Relation Name Status Comments Father Maternal Grandfather Mother Other 1 Other 2 Social History Tobacco Use Types Packs/Day Years Used Date Smoking Tobacco: Never Passive Smoke Exposure: Never Smokeless Tobacco: Never Tobacco Cessation:Counseling Given: Not Answered Alcohol Use Standard Drinks/Week Comments Never 0 [...] any time in the past 12 m [facility], were you homeless or living in a usp (including now)? No 06/05/2025 [facility] Utilities Answer Date Recorded In the [...] Orientation Straight 05/26/2021 8: 21 PM EST Last Filed Vital Signs Vital Sign Reading [...] Mass Index 33.91 06/05/2025 12:57 PM EST Plan of Treatment Health Maintenance Due Date Last Done Comments [facility]-Infant/Child/Adol SDOH Screenings 1991 [facility]-Varicella Vaccines (1 of 2 - 13+ 2-dose series) 2004 [facility]-Hepatitis B Vaccines (1 of 3 - 19+ 3-dose series) 2010 [facility]-Pneumococcal Vaccine: Pediatrics (0 to 5 Years) and At-Risk Patients (6 to 49 Years) (1 of 2 - PCV) 2010 [facility]-Pap Smear 2012 [facility]-Cervical Cancer Screening 2021 [facility]-HPV/Cotest 2021 [facility]-HEWHL-64 Vaccine (1 - 2024- season) 2025 [facility]-Influenza Vaccine (#1) 03/13/202505/23, 05/25/2020, 03/23/2019, Additional history exists [facility]- SDOH Screenings 12/03/2025 [facility]-Adult SDOH Screenings 12/03/2025 06/05/2025 [facility]-Depression Screening 06/05/2026 06/05/2025, 05/14 [facility]-DTaP,Tdap,and Td Vaccines (3 - Td or Tdap) 03/11/2034 03/11/2024, 09/12/2019 [facility]-Zoster Vaccines (1 of 2) 2041 [facility]-HIV Screening Completed 08/17/2023, , 10/30/2017 [facility]-Hepatitis C Screening Completed 2023, 03/26/2022, 03/23/2019, Additional history exists [facility]-Obesity Intervention Completed 025, 05/24/2025, 08/18/2024, Additional history exists HPV Vaccines (No Doses Required) Completed [facility]-HIB Vaccines Aged Out No longer e ligible based on patient's age to complete this topic [facility]-Hepatitis A Vaccines Aged Out No longer eligible based on patient's age to complete this topic [facility]-IPV Vaccines Aged Out No longer e ligible based on patient's age to complete this topic [facility]-Rotavirus Vaccines Aged Out No lo nger eligible based on patient's age to complete this topic Procedures Procedure Name Priority Date/Time Associated Diagnosis Comments HEPATITIS C ANTIBODY W/REFLEX TO HCV QUANT PCR Routine 08/17/2023 9:46 AM EST Exposure to STD HIV 1/2 ANTIBODY/ANTIGEN SCREEN WITH REFLEX TO HIV I/II DIFFERENTIATION Routine 08/17/2023 9:46 AM EST Exposure to STD from Last 3 Months or Most Recently Relevant to Health Maintenance Results * HIV 1 & 2 Antibody/Antigen Screen (08/17/2023 9:46 AM EST) HIV 1 & 2 Antibody/Antigen Screen Non Reactive Non Reactive 08/17/2023 1:48 PM EST [facility] Comment:Screening for HIV 1 & 2 antibodies, and P24 antigen is NONREACTIVE. No confirmatory testing is required. Blood Venous blood specimen / Unknown Venipuncture / Unknown 08/17/2023 9:46 AM EST 08/17/2023 9:46 AM EST Renya [employer] Garibay SAVE ALL OPERATOR LAB BLOOD ORDERABLES Final Result Performing Organization Address City/[facility] Co de Phone Number HEALTHCARE LAB [address] [place] [address] * Hepatitis C antibody (08/17/2023 9:46 AM EST) Hepatitis C Antibody Negative Negative 08/17/2023 1:48 PM EST [facility] Blood Venous blood specimen / Unknown Venipuncture / Unknown 08/17/2023 9:46 AM EST 08/17/2023 9:46 AM EST Reyna [employer]Garibay SAVE ALL OPERATOR LAB BLOOD ORDERABLES Final Result Performing Organization Address City/[facility] Co de Phone Number [facility] [address] [place] [address] from Last 3 Months or Most Recently Relevant to Health Maintenance Insurance ANTHEM Care Teams Cage Shift Manager Relationship Specialty Start Date End Date Reyna Garibay APRN [address] [place] [address] PCP - General 11/23/20
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
--- OUTSIDE RECORDS SUMMARY | 2025-06-28 13:41 | XMS_ITS | Encounter Summary ---
Author Organization Healthcare Address [address] [place] [address] Care Team Providers Care Lower School Spanish Teacher Name Role Phone Reyna Garibay APRN Primary Care Provider [phone] Encounter Details Date Type Department Care Team (Late st Contact Info) Description 06/13/2023 Outside Procedure External Location [address] [place] [address] Provider, [place] Ke[place] Social History Tobacco Use [...] Associated Diagnosis Comments XR CHEST 1 VIEW 06/13/2023 12:12 PM EST documented in this encounter Results * XR Chest 1 View (06/13/2023 12:12 PM EST) Anatomical Region Laterality Modality Chest Digital Radiogra phy 06/13/2023 12:1 2 PM EST Narrative 06/14/2023 8:29 [place] [address] Name: SHANEKA GRAF Exam Date: 06/13/2023 : 1990 Age 33 Gender: F Physician: CHANTE FISH Facility: [facility] Facility HSV: Outpatient Exam: CHEST PORTABLE PORTABLE CHEST HISTORY: Chest pain, shortness of breath COMPARISON: 03/05/2023 The heart is normal in size. The mediastinum is unremarkable. The lungs are clear. There is no pneumothorax. IMPRESSION: No acute cardiopulmonary process. Dictated By: CINTHYA WAGNER Transcribed By: CINTHYA WAGNER Transcribed On: 06/14/2023 8:16 AM Electronically signed by: CINTHYA WAGNER 06/14/2023 Thank you for referring SHANEKA GRAF to [facility]. Legally authenticated by BERNARD MENDES 2023-06-14 08:16:06 Procedure Note Provider, Generic [place] - 06/14/2023 [place] [address] Name: SHANEKA GRAF Exam Date: 06/13/2023 : 1990 Age 33 Gender: F Physician: CHANTE FISH Facility: [facility] Facility HSV: Outpatient Exam: CHEST PORTABLE PORTABLE CHEST HISTORY: Chest pain, shortness of breath COMPARISON: 03/05/2023 The heart is normal in size. The mediastinum is unremarkable. The lungsare clear. There is no pneumothorax. IMPRESSION: No acute cardiopulmonary process. Dictated By: CINTHYA WAGNER Transcribed By: CINTHYA WAGNER Transcribed On: 06/14/2023 8:16 AM Electronically signed by: CINTHYA WAGNER 06/14/2023 Thank you for referring SHANEKA GRAF to [facility]. Legally authenticated by BERNARD MENDES 2023-06-14 08:16:06 Generic [place] Provider IMG XR PROCEDURES Fi nal Result [...] plan has been documented for the patient 04/24/2023 2:20 PM EDT documented as of this encounter Care Teams Lower School Spanish Teacher Relationship Specialty Start Date End Date Reyna Garibay, OLGA LIDIA [address] [place] [address] PCP - General 11/23/20 documented as of this encounter
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
--- OUTSIDE RECORDS SUMMARY | 2025-06-28 13:42 | XMS_ITS | Encounter Summary ---
Author Organization Healthcare Address [address] [place] [address] Care Team Providers Care Filter Cleaner Name Role Phone Rickey Harrison APRN Primary Care Provider [phone] Encounter Details Date Type Department Care Team (Late st Contact Info) Description 08/23/2021 Outside Procedure External Location [address] [place] [address] Rickey Harrison APRN [address] [place] [address] Social History Tobacco Use Types Packs/Day Years Used Date Smoking Tobacco: Never Smokeless Tobacco: Never PHQ-2 Answer Date Recorded Patient Health Questionnaire-2 Score 0 03/29/2021 Comments Unknown Sex and Gender Information Value Date Recorded Sex Assigned at Female 05/26/2021 8:21 PM EST Legal Sex Female 6:04 PM EDT Gender Identity Female 05/26/2021 8:21 PM EST Sexual Orientation Straight 05/26/2021 8: 21 PM EST COVID-19 Exposure Response Date Recorded In the last month, have you been in contact with someone who was confirmed or suspected to have Coronavirus / COVID-19? No / Unsure 08/07/2021 12:32 PM EST documented as of this encounter Plan of Treatment Not on file documented as of this encounter Procedures Procedure Name Priority Date/Time Associated Diagnosis Comments US ABDOMEN RUQ 08/23/2021 10:01 AM EST documented in this encounter Results * US Abdomen RUQ (08/23/2021 10:01 AM EST) Anatomical Region Laterality Modality Gallbladder Ultrasound 08/23/2021 10:0 1 AM EST Narrative 08/23/2021 11:00 [place] [address] Name: SHANEKA GRAF Exam Date: 08/23/2021 : 1990 Age 31 Gender: F Physician: RICKEY HARRISON Facility: [facility] Facility HSV: Outpatient Exam: RT UPPER QUADRANT US RIGHT UPPER QUADRANT ULTRASOUND HISTORY: Right upper quadrant pain Multiple transverse and longitudinal scans were performed of the right upper quadrant of the abdomen. FINDINGS: There is mild hepatic steatosis. There are multiple shadowing stones in the gallbladder. There is no evidence of acute cholecystitis. There is no evidence of common duct dilatation. Pancreas is obscured. The right kidney shows no evidence of obstruction. IMPRESSION: 1. Mild hepatic steatosis. 2. Cholelithiasis without evidence of acute cholecystitis. Images reviewed, interpreted, and dictated by Dr. Hanna Nuñez. Transcribed by Marga Hernandes PA-C Dictated By: Hanna Boyle Transcribed By: Hanna Nuñez Transcribed On: 08/23/2021 10:48 AM Electronically signed by: Hanna Boyle 08/23/2021 Thank you for referring SHANEKA GRAF to [facility]. Legally authenticated by ADELITA ALEX 2021-08-23 10:48:45 Procedure Note Provider, Generic [place] - 08/23/2021 [place] [address] Name: SHANEKA GRAF Exam Date: 08/23/2021 : 1990 Age 31 Gender: F Physician: RICKEY HARRISON Facility: [facility] Facility HSV: Outpatient Exam: RT UPPER QUADRANT US RIGHT UPPER QUADRANT ULTRASOUND HISTORY: Right upper quadrant pain Multiple transverse and longitudinal scans were performed of the rightupper quadrant of the abdomen. FINDINGS: There is mild hepatic steatosis. There are multiple shadowingstones in the gallbladder. There is no evidence of acute cholecystitis. There isno evidence of common duct dilatation. Pancreas is obscured. The rightkidney shows no evidence of obstruction. IMPRESSION: 1. Mild hepatic steatosis. 2. Cholelithiasis without evidence of acute cholecystitis. Images reviewed, interpreted, and dictated by Dr. Hanna Nuñez. Transcribed by Marga Hernandes PA-C Dictated By: Hanna Boyle Transcribed By: Hanna Nuñez Transcribed On: 08/23/2021 10:48 AM Electronically signed by: Hanna Boyle 08/23/2021 Thank you for referring SHANEKA GRAF to [facility]. Legally authenticated by ADELITA ALEX 2021-08-23 10:48:45 us Rickey Harrison POSTAL WORKER IMG US PROCEDURES Final Res ult documented in this encounter Visit Diagnoses Not on filedocumented in this encounter Additional Health Concerns Infection Onset Date Last Indicated Resolved Time COVID-19 Rule-Out 10/16/2022 10/16/2022 10/16/2022 5:39 PM EDT COVID-19 Rule-Out 05/06/2024 05/06/2024 05/06/2024 10:15 AM EDT Respiratory Rule-Out 05/06/2024 05/06/2024 024 4:47 PM EDT Rhinovirus 05/06/2024 05/06/2024 08/18/2024 12:3 6 PM EST Assessment Noted Time A fall risk assessment has been complete d for the patient 03/29/2021 8:38 AM EDT documented as of this encounter Care Teams Filter Cleaner Relationship Specialty Start Date End Date Rickey Harrison APRN [address] [place] [address] PCP - General 11/23/20 documented as of this encounter
--- OUTSIDE RECORDS SUMMARY | 2025-06-28 13:42 | XMS_ITS | Encounter Summary ---
Author Organization Healthcare Address [address] [place] [address] Care Team Providers Care Cloak Room Attendant Name Role Phone Reyna Garibay APRN Primary Care Provider [phone] Encounter Details Date Type Department Care Team (Late st Contact Info) Description 08/19/2024 Outside Procedure External Location [address] [place] [address] Provider, [place] Social History Tobacco Use Types Packs/Day Years Used Date Smoking Tobacco: Never Passive Smoke Exposure: Never Smokeless Tobacco: Never Alcohol Use Standard Drinks/Week Comments Never 0 (1 standard drink = 0.6 oz pur e alcohol) Humiliation, Afraid, Rape, and Kick questionnair e Answer Date Recorded Within the last year, have y ou been afraid of your partner or ex-partner? No 08/18/2024 Within the last year, have y ou been humiliated or emotionally abused in other ways by your partner or ex-partner? No Within the last year, have y ou been kicked, hit, slapped, or otherwise physically hurt by your partner or ex-partner? No 08/18/2024 Within the last year, have y ou been raped or forced to have any kind of sexual activity by your partner or ex-partner? No 08/18/2024 PHQ-2 Answer Date Recorded Patient Health Questionnaire-2 Score 2 08/18/2024 Hunger Vital Sign Answer Date Recorded Within the past 12 months, y ou worried that your food would run out before you got the money to buy more. Never true 08/18/19 25 Within the past 12 months, t he food you bought just didn't last and you didn't have money to get more. Never true 08/18/2024 PRAPARE - Transportation Answer Date Re corded In the past 12 months, has l ack of transportation kept you from medical appointments or from getting medications? No 12/2024 In the past 12 months, has l ack of transportation kept you from meetings, work, or from getting things needed for daily living? No 08/18/2024 Housing Stability Vital Sign Answer Manish e Recorded In the last 12 months, was t here a time when you were not able to pay the mortgage or rent on time? No 03/01/2024 In the last 12 months, how many places have you lived? 1 03/01/2024 In the last 12 months, was t here a time when you did not have a steady place to sleep or slept in a chcf (including now)? No 03/01/2024 PHQ-9 Answer Date Recorded Patient Health Questionnaire-9 Score 9 08/18/2024 Housing Stability Vital Sign Answer Manish e Recorded In the last 12 months, was t here a time when you were not able to pay the mortgage or rent on time? No 08/18/2024 In the past 12 months, how m any times have you moved where you were living? 0 08/18/2024 At any time in the past 12 m [facility], were you homeless or living in a chcf (including now)? No 08/18/2024 Utilities Answer Date Recorded In the past 12 months has th e electric, gas, oil, or water company threatened to shut off services in your home? No 08/18/2024 PHQ-2A Answer Date Recorded Patient Health Questionnaire-2 [...] Associated Diagnosis Comments XR CHEST 1 VIEW 08/19/2024 4:52 PM EST documented in this encounter Results * XR Chest 1 View (08/19/2024 4:52 PM EST) Anatomical Region Laterality Modality Chest Digital Radiogra phy 08/19/2024 4:52 PM EST Narrative 08/19/2024 5:35 [place] [address] Name: SHANEKA BLANCHARD Exam Date: 08/19/2024 : 1990 Age 34 years Gender: F Physician: CHANTE FISH Facility: [facility] Facility HSV: Outpatient Exam: CHEST PORTABLE FINAL REPORT TECHNIQUE: null CLINICAL HISTORY: Congestion COMPARISON: null FINDINGS: 1 view chest x-ray Comparison: None Findings: No consolidation or effusion. Heart size is normal. No acute fracture. IMPRESSION: IMPRESSION: 1. No acute findings. Authenticated and EASTERN Dictated By: Viet Blanchard Transcribed By: Transcribed On: 08/19/2024 5:32 PM Electronically signed by: Viet Blanchard 08/19/2024 Thank you for referring SHANEKA BLANCHARD to [facility]. Legally authenticated by LUANNE Santana 2024-08-19 17:32:47 Procedure Note Provider, [facility] - 08/19/2024 [place] [address] Name: SHANEKA BLANCHARD Exam Date: 08/19/2024 : 1990 Age 34 years Gender: F Physician: CHANTE FISH Facility: [facility] Facility HSV: Outpatient Exam: CHEST PORTABLE FINAL REPORT TECHNIQUE: null CLINICAL HISTORY: Congestion COMPARISON: null FINDINGS: 1 view chest x-ray Comparison: None Findings: No consolidation or effusion. Heart size is normal. No acute fracture. IMPRESSION: IMPRESSION: 1. No acute findings. Authenticated and EASTERN Dictated By: Viet Blanchard Transcribed By: Transcribed On: 08/19/2024 5:32 PM Electronically signed by: Viet Blanchard 08/19/2024 Thank you for referring SHANEKA BLANCHARD Philip to [facility]. Legally authenticated by LUANNE Santana 2024-08-19 17:32:47 us Generic [place] Provider IMG XR PROCEDURES Fi nal Result documented in this encounter Visit Diagnoses Not on filedocumented in this encounter Additional Health Concerns Assessment Noted Time PHQ-9 Depression Total Score: 9 08/18/19 25 12:49 PM EST A fall risk assessment has been complete d for the patient 06/20/2022 2:07 PM EST A Body Mass Index follow-up plan has been documented for the patient 08/18/2024 1:30 PM EST documented as of this encounter Care Teams Cloak Room Attendant Relationship Specialty Start Date End Date Reyna Garibay APRN [address] [place] [phone] PCP - General 11/23/20 documented as of this encounter
--- OUTSIDE RECORDS SUMMARY | 2025-06-28 13:42 | XMS_ITS | Encounter Summary ---
Author Organization Healthcare Address [address] [place] [address] Care Team Providers Care Electronic Scale Tester Name Role Phone Reyna Garibay APRN Primary Care Provider [phone] Encounter Details Date Type Department Care Team (Late st Contact Info) Description 03/21/2021 Outside Procedure External Location [address] [place] [address] Provider, [facility] Social History Tobacco Use Types Packs/Day Years Used Date Smoking Tobacco: Never Comments Unknown Sex and Gender Information Value [...] Comments CT LUMBAR SPINE WO IV CONTRAST 03/21/2021 8:03 PM EDT documented in this encounter Results * CT Lumbar Spine wo IV Contrast (03/21/2021 8:03 PM EDT) Anatomical Region Laterality Modality Spine, L-spine Computed Tomogra phy 03/21/2021 8:03 PM EDT Narrative 03/21/2021 9:01 PM EDT [address] [address] Name: SHANEKA GRAF Exam Date: 03/21/2021 : 1990 Age 30 Gender: F Physician: SANTI NICHOLS Facility: [facility] Facility HSV: Outpatient Exam: CT LUMBAR SPINE W/O FINAL REPORT TECHNIQUE: Axial CT images were obtained through the lumbar spine. Sagittal and coronal reformatted images were generated from the axial data set and provided for interpretation. This study was performed with techniques to keep radiation doses as low as reasonably achievable (ALARA). Individualized dose reduction techniques using automated exposure control or adjustment of mA and/or kV according to the patient's size were employed. CLINICAL HISTORY: thrown from a horse lbp FINDINGS: There are left L2, L3, and L4 transverse process fractures. The lumbar lordosis is preserved. The vertebral body heights are maintained. The facets are appropriately aligned. No significant degenerative changes are present. No acute paraspinal abnormalities. IMPRESSION: Left L2, L3, and L4 transverse process fractures. Reviewed, Interpreted and Dictated by Reza Calvo MD Transcribed by Clara Whiting Authenticated by Reza Calvo MD on 03/21/2021 08:50:32 PMEASTERN Dictated By: Reza Calvo Transcribed By: Transcribed On: 03/21/2021 8:50 PM Electronically signed by: Reza Calvo 03/21/2021 Thank you for referring SHANEKA GRAF to [facility]. Legally authenticated by ASHWIN Ponce 2021-03-21 20:50:32 Procedure Note Provider, [facility] [place] - 03/21/2021 [place] [address] Name: SHANEKA GRAF Exam Date: 03/21/2021 : 1990 Age 30 Gender: F Physician: SATNI NICHOLS Facility: [facility] Facility HSV: Outpatient Exam: CT LUMBAR SPINE W/O FINAL REPORT TECHNIQUE: Axial CT images were obtained through the lumbar spine. Sagittal and coronal reformatted images were generated from the axial data set and provided for interpretation. This study was performed with techniques to keep radiation doses as low as reasonably achievable (ALARA). Individualized dose reduction techniques using automated exposure control or adjustment of mA and/or kV according to the patient's size were employed. CLINICAL HISTORY: thrown from a horse lbp FINDINGS: There are left L2, L3, and L4 transverse process fractures. The lumbar lordosis is preserved. The vertebral body heights are maintained. The facets are appropriately aligned. No significant degenerative changes are present. No acute paraspinal abnormalities. IMPRESSION: Left L2, L3, and L4 transverse process fractures. Reviewed, Interpreted and Dictated by Reza Calvo MD Transcribed by Clara Whiting Authenticated by Reza Calvo MD on 03/21/2021 08:50:32 PMEASTERN Dictated By: Reza Calvo Transcribed By: Transcribed On: 03/21/2021 8:50 PM Electronically signed by: Reza Calvo 03/21/2021 Thank you for referring SHANEKA GRAF to [facility]. Legally authenticated by ASHWIN Ponce 2021-03-21 20:50:32 Generic [place] Provider IMG CT PROCEDURES Fi nal Result documented in this encounter Visit Diagnoses Not on filedocumented in this encounter Additional Health Concerns Infection Onset Date Last Indicated Resolved Time COVID-19 Rule-Out 10/16/2022 10/16/2022 10/16/2022 5:39 PM EDT COVID-19 Rule-Out 05/06/2024 05/06/2024 05/06/2024 10:15 AM EDT Respiratory Rule-Out 05/06/2024 05/06/2024 024 4:47 PM EDT Rhinovirus 05/06/2024 05/06/2024 08/18/2024 12:3 6 PM EST documented as of this encounter Care Teams Electronic Scale Tester Relationship Specialty Start Date End Date Reyna Garibay APRN [address] [place] [phone] PCP - General 11/23/20 documented as of this encounter
--- OUTSIDE RECORDS SUMMARY | 2025-06-28 13:42 | XMS_ITS | Encounter Summary ---
Author Organization Healthcare Address [address] [place] [address] Care Team Providers Care Stamping Mill Tender Name Role Phone Reyna Garibay APRN Primary Care Provider [phone] Encounter Details Date Type Department Care Team (Late st Contact Info) Description 08/19/2024 Outside Procedure External Location [address] [place] [address] Provider, [place] Social History Tobacco Use [...] place to sleep or slept in a longterm (including now)? No 03/01/2024 PHQ-9 Answer Date [...] any time in the past 12 m [facility], were you homeless or living in a longterm (including now)? No 08/18/2024 Utilities Answer Date [...] Name Priority Date/Time Associated Diagnosis Comments CT CHEST W IV CONTRAST 08/19/2024 5:19 PM EST documented in this encounter Results * CT Chest w IV Contrast (08/19/2024 5:19 PM EST) Anatomical Region Laterality Modality Chest Computed Tomogra phy 08/19/2024 5:19 PM EST Narrative 08/19/2024 7:02 PM EST [facility] [address] [place] [address] Name: SHANEKA BLNACHARD Exam Date: 08/19/2024 : 1990 Age 34 years Gender: F Physician: CHANTE FISH Facility: [facility] Facility HSV: Outpatient Exam: CT CHEST W EXAM: CT CHEST W CLINICAL INDICATION: Female, 34 years old. Congestion. COMPARISON: XR Chest 08/19/2024 4:53 PM. TECHNIQUE: Contiguous thin slice axial contrast enhanced CT images of the chest were obtained along with 2-D multiplanar reformatted images in the sagittal and coronal planes. CONTRAST: 75 mL of Isovue 300 intravenous contrast were used. DOSE LENGTH PRODUCT: 269.10 mGy*cm DOSE OPTIMIZATION: This CT scan was performed with one or more of the following dose optimization techniques: iterative reconstruction, automatic exposure control, and/or manual adjustment of mAs and kVp according to the patient's size. This CT exam has been performed using low dose protocols to limit radiation exposure to as low as reasonably achievable. This center is recognized and certified by the [employer], a designation awarded to centers who have demonstrated faculty competency, clinical image excellence and radiation safety compliance requirements. FINDINGS: The thyroid gland is unremarkable. The heart size is normal. There is no pericardial effusion. The aorta and pulmonary arteries appear unremarkable. No axillary adenopathy. The hilar and mediastinal structures including the central tracheobronchial tree and esophagus appear unremarkable. No hilar or mediastinal adenopathy seen. The lungs are normally inflated and clear. No lung infiltrates, masses/nodules, pleural effusions, vascular congestion or pneumothorax are present. Mild degenerative changes in the spine. The bones and soft tissues appear unremarkable otherwise. Limited evaluation of the upper abdomen shows no acute pathology. IMPRESSION: No acute pathology seen. Unremarkable study. This dictation was performed using voice recognition software and some phonetic and grammatical errors may be missed in proofreading. Electronically signed by: Ned Lyn MD 08/19/2024 06:50 PM [facility] Legally authenticated by NEHEMIAH GARDINER 2024-08-19 17:44:00 Dictated By: Ned Lyn Transcribed By: Transcribed On: 08/19/2024 5:44 PM Electronically signed by: Ned Lyn 08/19/2024 Thank you for referring SHANEKA BLANCHARD to [facility]. Legally authenticated by NEHEMIAH GARDINER 2024-08-19 17:44:00 Procedure Note Provider, [facility] - 08/19/2024 [place] [id number] Name: SHANEKA BLANCHARD Exam Date: 08/19/2024 : 1990 Age 34 years Gender: F Physician: CHANTE FISH Facility: [facility] Facility HSV: Outpatient Exam: CT CHEST W EXAM: CT CHEST W CLINICAL INDICATION: Female, 34 years old. Congestion. COMPARISON: XR Chest 08/19/2024 4:53 PM. TECHNIQUE: Contiguous thin slice axial contrast enhanced CT images ofthe chest were obtained along with 2-D multiplanar reformatted images in the sagittal and coronal planes. CONTRAST: 75 mL of Isovue 300 intravenous contrast were used. DOSE LENGTH PRODUCT: 269.10 mGy*cm DOSE OPTIMIZATION: This CT scan was performed with one or more of the following dose optimization techniques: iterative reconstruction,automatic exposure control, and/or manual adjustment of mAs and kVp according tothe patient's size. This CT exam has been performed using low dose protocols to limitradiation exposure to as low as reasonably achievable. This center is recognizedand certified by the [employer], a designation awarded to centers who have demonstrated faculty competency, clinical imageexcellence and radiation safety compliance requirements. FINDINGS: The thyroid gland is unremarkable. The heart size is normal. There is no pericardial effusion. The aorta and pulmonary arteries appear unremarkable. No axillary adenopathy. The hilar and mediastinal structures including the centraltracheobronchial tree and esophagus appear unremarkable. No hilar or mediastinaladenopathy seen. The lungs are normally inflated and clear. No lung infiltrates, masses/nodules, pleural effusions, vascular congestion or pneumothoraxare present. Mild degenerative changes in the spine. The bones and soft tissuesappear unremarkable otherwise. Limited evaluation of the upper abdomen shows no acute pathology. IMPRESSION: No acute pathology seen. Unremarkable study. This dictation was performed using voice recognition software and some phonetic and grammatical errors may be missed in proofreading. Electronically signed by: Ned Lyn MD 08/19/2024 06:50 PM [employer] Legally authenticated by NEHEMIAH GARDINER 2024-08-19 17:44:00 Dictated By: Ned Lyn Transcribed By: Transcribed On: 08/19/2024 5:44 PM Electronically signed by: Ned Lyn 08/19/2024 Thank you for referring SHANEKA BLANCHARD to [facility]. Legally authenticated by NEHEMIAH GARDINER 2024-08-19 17:44:00 us Generic [place] Provider IMG CT PROCEDURES Fi nal Result [...] documented as of this encounter Care Teams Stamping Mill Tender Relationship Specialty Start Date End Date Reyna Garibay APRN [address] [place] [phone] PCP - General 11/23/20 documented as of this encounter
--- OUTSIDE RECORDS SUMMARY | 2025-06-28 13:43 | XMS_ITS | Encounter Summary ---
Author Organization Healthcare Address [address] [place] [address] Care Team Providers Care Rhythmic Gymnastics Coach Name Role Phone Rickey Harrisno APRN Primary Care Provider [phone] Encounter Details Date Type Department Care Team (Late st Contact Info) Description 06/09/2022 Outside Procedure External Location [address] [place] [address] Rickey Harrison APRN [address] [place] [address] Social History Tobacco Use Types Packs/Day Years Used Date Smoking Tobacco: Never Smokeless Tobacco: Never PHQ-2 Answer Date Recorded Patient Health Questionnaire-2 Score 0 05/02/2022 Comments Unknown Sex and Gender Information Value Date Recorded Sex Assigned at Female 05/26/2021 8:21 PM EST Legal Sex Female 6:04 PM EDT Gender Identity Female 05/26/2021 8:21 PM EST Sexual Orientation Straight 05/26/2021 8: 21 PM EST COVID-19 Exposure Response Date Recorded In the last 10 days, have yo u been in contact with someone who was confirmed or suspected to have Coronavirus/COVID-19? No / Unsure 06/10/2022 1:51 PM EST documented as of this encounter Plan of Treatment Not on file documented as of this encounter Procedures Procedure Name Priority Date/Time Associated Diagnosis Comments XR CHEST 2 VIEWS 06/09/2022 5:01 PM EST documented in this encounter Results * XR Chest 2 Views (06/09/2022 5:01 PM EST) Anatomical Region Laterality Modality Chest Radiographic Joanna ging 06/09/2022 5:01 PM EST Narrative 06/10/2022 8:15 [place] [address] Name: SHANEKA GRAF Exam Date: 06/09/2022 : 1990 Age 32 Gender: F Physician: RICKEY HARRISON Facility: [facility] Facility HSV: Outpatient Exam: CHEST 2 VIEWS CHEST, 2 views HISTORY: Shortness of breath. COMPARISON: None. FINDINGS: Mild bronchial wall thickening. No focal consolidation. There is no evidence of effusion or other pleural disease. The mediastinum has a normal appearance. The cardiac silhouette is unremarkable. IMPRESSION: Bronchitis. No focal pneumonia. Dictated By: Hanna Boyle Transcribed By: Hanna Nuñez Transcribed On: 06/10/2022 8:04 AM Electronically signed by: Hanna Boyle 06/10/2022 Thank you for referring SHANEKA GRAF to [facility]. Legally authenticated by ADELITA ALEX 2022-06-10 08:04:35 Procedure Note Provider, Generic [place] - 06/10/2022 [place] [address] Name: SHANEKA GRAF Exam Date: 06/09/2022 : 1990 Age 32 Gender: F Physician: RICKEY HARRISON Facility: [facility] Facility HSV: Outpatient Exam: CHEST 2 VIEWS CHEST, 2 views HISTORY: Shortness of breath. COMPARISON: None. FINDINGS: Mild bronchial wall thickening. No focal consolidation. There is no evidence of effusion or other pleural disease. The mediastinumhas a normal appearance. The cardiac silhouette is unremarkable. IMPRESSION: Bronchitis. No focal pneumonia. Dictated By: Hanna Boyle Transcribed By: Hanna Nuñez Transcribed On: 06/10/2022 8:04 AM Electronically signed by: Hanna Boyle 06/10/2022 Thank you for referring SHANEKA GRAF to [facility]. Legally authenticated by ADELITA ALEX 2022-06-10 08:04:35 us Rickey Harrison CASH APPLICATIONS ASSOCIATE IMG XR PROCEDURES Final Res ult documented in this [...] has been complete d for the patient 05/02/2022 8:11 AM EDT documented as of this encounter Care Teams Rhythmic Gymnastics Coach Relationship Specialty Start Date End Date Rickey Harrison APRN [address] [place] [address] PCP - General 11/23/20 documented as of this encounter
--- OUTSIDE RECORDS SUMMARY | 2025-06-28 13:43 | XMS_ITS | Encounter Summary ---
Author Organization Healthcare Address [address] [place] [address] Care Team Providers Care Accounting Machine Mechanic Name Role Phone Reyna Garibay APRN Primary Care Provider [phone] Encounter Details Date Type Department Care Team (Latest Contact Info) Description 05/24/2025 Travel Social History Tobacco Use Types Packs/Day Years [...] any time in the past 12 m [facility], were you homeless or living in a nursing home (including now)? No 05/24/2025 [facility] Utilities Answer Date Recorded In [...] PM EST documented as of this encounter Functional Status * Over the past 2 weeks, how often have you been bothered by any of the following problems? Question Answer Date of Assessment Author Little interest or pleasure in doing things Several days 05/24/2025 2:34 PM EST Janessa Hayes Feeling down, depressed, or hopeless Several days 05/24/2025 2:34 PM EST Janessa Hayes Patient Health Questionnaire -2 Score 2 05/24/2025 [...] than half the days 05/24/2025 2:34 PM EST Janessa Hayes Moving or speaking so slowly that other [...] Assessment Author Somewhat difficult 05/24/2025 2:34 PM Janessa Freed * Question Answer Date of Assessment Author 1. Wish to be (Past 1 Month) No 025 2:36 PM Janessa Giron 2. Non-Specific Active Suici maylin Thoughts (Past 1 Month) No 05/24/2025 2:36 PM Janessa Giron 6. Suicidal Behavior (Lifetime) No 5 2:36 PM Janessa Giron documented as of this encounter Plan of Treatment Not on file documented as of this encounter Visit Diagnoses Not on filedocumented [...] documented as of this encounter Care Teams Accounting Machine Mechanic Relationship Specialty Start Date End Date Reyna Garibay, STEAM SERVICE INSPECTOR [address] [place] [phone] PCP - General 11/23/20 documented as of this encounter
--- OUTSIDE RECORDS SUMMARY | 2025-06-28 13:43 | XMS_ITS | Encounter Summary ---
Author Organization Healthcare Address [address] [place] [id number] Care Team Providers Care Radio Reporter Name Role Phone Reyna Garibay APRN Primary Care Provider [phone] Reason for Visit * Reason Onset Date Comments Med Refill 03/27/2022 Encounter Details Date Type Department Care Team (Late st Contact Info) Description 03/27/[address] [facility] [address] [place] [address] Dana Briceño, REVENUE TAX SPECIALIST [address] [facility] [address] [place] [address] Mild intermittent asthma with (acute) exacerbation Social History Tobacco Use Types Packs/Day Years Used Date Smoking Tobacco: Never Smokeless Tobacco: Never PHQ-2 Answer Date Recorded Patient Health Questionnaire-2 Score 0 03/26/2022 Comments Unknown Sex and Gender Information Value [...] suspected to have Coronavirus/COVID-19? No / Unsure 03/26/2022 9:21 AM EDT documented as of this encounter Plan of Treatment Not on file documented as of this encounter Visit Diagnoses Diagnosis Mild intermittent asthma with (acute) exacerbation documented in this encounter Additional Health Concerns Infection Onset Date Last Indicated Resolved Time COVID-19 Rule-Out 10/16/2022 10/16/2022 10/16/2022 5:39 PM EDT COVID-19 Rule-Out 05/06/2024 05/06/2024 05/06/2024 10:15 AM EDT Respiratory Rule-Out 05/06/2024 05/06/2024 024 4:47 PM EDT Rhinovirus 05/06/2024 05/06/2024 08/18/2024 12:3 6 PM EST Assessment Noted Time A fall risk assessment has been complete d for the patient 03/26/2022 9:43 AM EDT documented as of this encounter Care Teams Radio Reporter Relationship Specialty Start Date End Date Reyna Garibay APRN [address] [place] [address] PCP - General 11/23/20 documented as of this encounter
--- OUTSIDE RECORDS SUMMARY | 2025-06-28 13:43 | XMS_ITS | Encounter Summary ---
Author Organization Healthcare Address [address] [place] [address] Care Team Providers Care Political Geographer Name Role Phone Reyna Garibay APRN Primary Care Provider [phone] Encounter Details Date Type Department Care Team (Latest Contact Info) Description 06/05/2025 Travel Social History Tobacco Use Types Packs/Day [...] any time in the past 12 m [facility], were you homeless or living in a fdc (including now)? No 06/05/2025 [facility] Utilities Answer Date Recorded In the past [...] Author No Risk Indicated 06/05/2025 12:57 PM Janessa Freed * How difficult have these problems made it for you to do your work, take care of things at home, or get along with other people? Answer Date of Assessment Author Somewhat difficult 06/05/2025 12:58 PM Janessa Brito * Question Answer Date of Assessment Author 1. Wish to be (Past 1 Month) No 025 12:57 PM Janessa Giron 2. Non-Specific Active Suici maylin Thoughts (Past 1 Month) No 06/05/2025 12:57 PM Janessa Giron 6. Suicidal Behavior (Lifetime) No 12:57 PM Janessa Giron documented as of this [...] documented as of this encounter Care Teams Political Geographer Relationship Specialty Start Date End Date Reyna Garibay, [employer]UCK[employer] OWNER OPERATOR [address] [place] [address] PCP - General 11/23/20 documented as of this encounter
--- OUTSIDE RECORDS SUMMARY | 2025-06-28 13:43 | XMS_ITS | Encounter Summary ---
Author Organization Healthcare Address [address] [place] [address] Care Team Providers Care Ring Facer Name Role Phone Reyna Garibay APRN Primary Care Provider [phone] Reason for Visit * Reason Comments Med Refill Encounter Details Date Type Department Care Team (Late st Contact Info) Description 02/02/2022 Refill [facility] [address], [address] [place] [address] Dana Briceño, CHECK SCALER [address] [place] [address] Mild intermittent asthma with (acute) exacerbation Social History Tobacco Use Types Packs/Day Years Used Date Smoking Tobacco: Never Smokeless Tobacco: Never PHQ-2 Answer Date Recorded Patient Health Questionnaire-2 Score 0 09/18/2021 Comments Unknown Sex and Gender Information Value [...] has been complete d for the patient 09/18/2021 9:17 AM EST documented as of this encounter Care Teams Ring Facer Relationship Specialty Start Date End Date Reyna Garibay APRN [address] [place] [id number] PCP - General 11/23/20 documented as of this encounter
== END 2025-06-28 23:59 | disposition home or self-care (01) ==
PROVIDERS: PCP Nurse Practitioner Family; Visit Provider Obstetrics & Gynecology
DX: R93.89 Abnormal findings on diagnostic imaging of other specified body structures (principal); D25.9 Leiomyoma of uterus, unspecified; N85.4 Malposition of uterus; N83.02 Follicular cyst of left ovary; N83.01 Follicular cyst of right ovary
CPT/HCPCS: 36415; 76830; 85025